=== PATIENT | male | born 1955 | race Caucasian/White ===

== ENCOUNTER → 2018-03-22 10:23 | Outpatient (CLI) | payer BC ==
[~2018-03-22 10:23] MED LIST: ASPIRIN EC81 M1 PO; MOBIC7.5 MG PO; OMNICEF300 MG PO; PROSCAR5 MG PO; UROXATRAL10 MG PO; [UNRECOGNIZED DRUG - OTHER] PO
== END | disposition home or self-care (01) ==
LOC: D.LABREF 10:23
DX: M17.12 Unilateral primary osteoarthritis, left knee (principal); Z11.8 Encounter for screening for other infectious and parasitic diseases

== ENCOUNTER 2018-03-30 09:35 | Inpatient (IN) | payer BC ==
[~2018-03-30] VITALS: Ht 172.7 cm; Wt 86.4 kg
[2018-03-30] MEDS ORDERED: OMNICEF300 MG PO (10:58)
[2018-03-30] MEDS ORDERED: [UNRECOGNIZED DRUG - OTHER] PO (11:00)
[2018-03-30] MEDS ORDERED: PROSCAR5 MG PO (11:00)
[2018-03-30] MEDS ORDERED: ASPIRIN EC81 M1 PO (11:01)
[2018-03-30] MEDS ORDERED: UROXATRAL10 MG PO (11:01)
[2018-03-30] MEDS ORDERED: MOBIC7.5 MG PO (11:02)
[2018-03-30 12:21] LABS: BASOPHILS 0.6 % (0-2); EOSINOPHILS 1.1 % (0-7); HEMATOCRIT 43.5 % (42.0-54.0); HEMOGLOBIN 15.1 g/dL (13.5-17.5); IMMATURE GRANULOCYTES 0.4 % (0-5); LYMPHOCYTES 37.3 % (15-50); MCH 31.7 pg (26.0-34.0); MCHC 34.7 g/dL (31.0-37.0); MCV 91.4 fL (80.0-100.0); MEAN PLATELET VOLUME 9.8 fL (7.4-10.4); MONOCYTES 8.2 % (2-11); NEUTROPHILS 52.4 % (40-80); PLATELET COUNT 218 10x3/uL (130-400); RBC 4.76 10x6/uL (4.20-6.10); RDW 13.1 % (11.5-14.5); WBC 8.4 10x3/uL (4.8-10.8)
[2018-03-30 12:28] LABS: ANION GAP 11.4 mmol/L (8-16); CALCIUM 8.6 mg/dL (8.5-10.1); CARBON DIOXIDE 26.5 mmol/L (21.0-32.0); CREATININE - SERUM 1.1 mg/dL (0.6-1.3); POTASSIUM - SERUM 3.9 mmol/L (3.5-5.1)
[2018-03-30 12:38] LABS: APTT 26.6 SECONDS (22.8-39.4); INR 1.02 (0.85-1.17); PROTIME 12.9 SECONDS (11.6-15.0)
[2018-03-30 13:34] LABS: APPEARANCE CLEAR (CLEAR); BILIRUBIN NEGATIVE (NEGATIVE); COLOR YELLOW (YELLOW); GLUCOSE NEGATIVE (NEGATIVE); KETONE NEGATIVE (NEGATIVE); NITRITE NEGATIVE (NEGATIVE); PROTEIN NEGATIVE (NEGATIVE); UROBILINOGEN NORMAL (NORMAL)
[2018-04-05 09:07] VITALS: BP 138/71; BMI 28.1
[2018-04-05 16:00] VITALS: BP 114/80
[2018-04-05 16:46] VITALS: BP 114/80
--- NOTE | 2018-04-05 16:49 | NUR ---
PT ARRIVED TO UNIT FROM RECOVERY ROOM IN STABLE CONDTION, OREINTED TO ROOM , CL IN REACH
[2018-04-05 18:08] VITALS: Ht 172.7 cm; Wt 86.4 kg
--- NOTE | 2018-04-05 18:46 | NUR ---
RECRUITMENT SPECIALIST CMOLPETE. PT LYING IN BED AAO X4 TO PERSON, PLACE,TIME AND SITUATION. AT BEDISDE. L TOTAL KNEE REPLACEMENT DONE TODAY- MARIO WRAP AND ALICIA HOSE IN PLACE. DENIES PAIN AT THIS TIME. CL IN REACH.
[2018-04-05 20:48] VITALS: BP 112/69
[2018-04-06 00:34] VITALS: BP 99/55
--- NOTE | 2018-04-06 02:30 | NUR ---
EYES CLOSED RESPIRATIONS WITH EASE AND UNLABORED. SR UP X2 CALL LIGHT WITHIN REACH.
[2018-04-06 04:46] VITALS: BP 105/58
[2018-04-06 06:48] LABS: BASOPHILS 0.1 % (0-2); EOSINOPHILS 0 % (0-7); HEMATOCRIT 37.2 % (42.0-54.0); HEMOGLOBIN 12.9 g/dL (13.5-17.5); IMMATURE GRANULOCYTES 0.3 % (0-5); LYMPHOCYTES 12.1 % (15-50); MCH 31.5 pg (26.0-34.0); MCHC 34.7 g/dL (31.0-37.0); MEAN PLATELET VOLUME 10.1 fL (7.4-10.4); MONOCYTES 7.2 % (2-11); NEUTROPHILS 80.3 % (40-80); PLATELET COUNT 201 10x3/uL (130-400); RBC 4.09 10x6/uL (4.20-6.10); RDW 12.9 % (11.5-14.5); WBC 11.6 10x3/uL (4.8-10.8)
[2018-04-06 07:01] LABS: ALBUMIN 2.8 g/dL (3.4-5.0); ALKALINE PHOSPHATASE 36 U/L (46-116); ALT (SGPT) 40 U/L (10-68); BILIRUBIN - TOTAL 0.31 mg/dL (0.2-1.3); CALC OSMOLALITY 279 mosm/kg (275-300); CALCIUM 7.7 mg/dL (8.5-10.1); CARBON DIOXIDE 22.9 mmol/L (21.0-32.0); CHLORIDE - SERUM 104 mmol/L (98-107); GLUCOSE 128 mg/dL (74-106); POTASSIUM - SERUM 4.4 mmol/L (3.5-5.1); PROTEIN - SERUM 5.6 g/dL (6.4-8.2); SODIUM 138 mmol/L (136-145); UREA NITROGEN 17 mg/dL (7-18); eGFR NON AFRICAN AMERICAN 81 mL/min (90-120)
[2018-04-06 09:13] VITALS: BP 107/60
[2018-04-06 15:16] VITALS: BP 120/57
--- NOTE | 2018-04-06 16:32 | OP ---
PATIENT NAME: HEIDI HUERTA MEDICAL RECORD: [id number] :59 LOCATION:D.MS [id number] ADMISSION DATE:04/05/18 SURGEON: RAIMUNDO DAVID DO DATE OF OPERATION: 04/05/2018 PROCEDURE PERFORMED: Left total knee arthroplasty. PREOPERATIVE DIAGNOSIS: Left medial osteoarthritis. POSTOPERATIVE DIAGNOSIS: Left medial osteoarthritis. INDICATIONS: Mr. Huerta is a 63-year-old male who has gone through several rounds of conservative management for his left knee. He has tried injections, home therapy and all manner of treatment to no avail. He is tired of it affecting his activities of daily living and want the total knee done. I informed him of the risks and benefits of the procedure including infection, bleeding, damage to nerve or vessels, blood clots, and even . He was okay with that and fracturing and signed the consent. SURGEON: Raimundo David DO DESCRIPTION OF THE PROCEDURE: The patient was given a block by anesthesia in the preoperative area, taken to the operative suite, given 2 grams Ancef and 80 mg gentamicin preoperatively. The left lower extremity was prepped and draped in sterile fashion. A timeout was performed. Everyone was in agreement of correct side, site, and patient, and procedure. Incision was then marked out on the anterior knee and then the knee was wrapped in Ioban. A #10 blade scalpel was then used to dissect down to the capsule itself. All bleeders were coagulated at that time with the Aquamantys as throughout the case. A fresh 10 blade was used to do a medial parapatellar approach to the capsule and then some of the fat pad was removed and the patella was everted and milled down to fit the prosthesis. Once that was done, the knee was flexed and the intramedullary canal was entered and the distal femur was cut. The tibia was then cut as well and the femur was then measured to be a 65. A 4-in-1 cutting block was put on and then 4-in-1 cut was made. The bone was removed and then a 65 trial was placed. After the tibia was cut, the menisci were removed and everything was coagulated in the posterior capsule and then medial and lateral geniculate bleeders were coagulated as well and then, the femur was cut. The poly did not, with the traded out, quite fit medially. The release was done medially and still thinks that the PCL was partially released off the femur in hopes that it open up the medial side and this did help. Then, the trial femur was removed and the tibia was recut to approximately 2 more mm taken off. After that was done, the trial was put back on the femur and the tibia was put into place. It fit very tightly but it fit with a 10 poly. It was ranged and then rotation was marked and the femur was drilled and the patella was drilled and the tibia was then prepared. It was sized to be a 75 cruciate and tibia that was drilled and punched and the whole knee was irrigated thoroughly. Then, cement was put into the tibia as well as on the implant. This was impacted in place. Excess cement was removed. The porous femur 65 left 4 cm was then put on and impacted into place and then 10 poly was put in between them. The knee was brought to extension of 34. A three-peg patella was cemented on and held into place while the cement dried. The knee was thoroughly irrigated at that point and then after it was irrigated, the 10 fit very well, but due to the partially released PCL bearing 10 E poly was placed. This was put in and fit very well, was very solid. No medial or lateral movement in extension with flexion or mid OPERATIVE REPORT [id number] HEIDI HUERTA flexion. The locking mechanism was put in and snapped into place. The knee was irrigated one more time and then Surgicel beads were placed in the gutters as well as tobramycin and vancomycin powder. The knee was then flexed up and the capsule was closed with #5 Ethibond in a few xvaerg-ey-bkjay stitches and then #1 pop-off Vicryl in between them. The knee on the capsule was then irrigated, more vancomycin and tobramycin powder was placed. The skin was closed with 2-0 Vicryl in inverted interrupted fashion. The zipped line was then placed on the knee. Adaptic, 4 x 4, ABD, Webril and an Bassam wrap was placed on the knee and ALICIA hose stocking was placed up to the knee and the patient was awakened and then taken to recovery in stable condition. Blood loss was approximately 200 mL. COMPLICATIONS: None. TRANSINT:[id number] Voice Confirmation ID: [id number] DOCUMENT ID: [id number] RAIMUNDO DAVID DO at 1632 CC: [id number] DICTATION DATE: 04/05/18 1558 ION EXCHANGE OPERATOR: 04/05/18 194 ADM IN [facility] [address] [id number]
--- NOTE | 2018-04-06 21:00 | NUR ---
PT SITTING UP IN BED, NO SIGNS OF DISTRESS. ALERT AND ORIENTED. AT BEDSIDE. PT STATES HE IS STILL FEELING BLOCK SOME BUT IT IS WEARING OFF. REMOVED CPM. PAIN 05/08. RIGHT HAND IV SL. SCD TO RIGHT LEG, PLEXI TO LEFT. NO NEEDS AT THIS TIME. CL IN REACH, WILL CONTINUE TO MONITOR
[2018-04-07 05:02] LABS: BASOPHILS 0.2 % (0-2); EOSINOPHILS 0.5 % (0-7); HEMATOCRIT 35.9 % (42.0-54.0); HEMOGLOBIN 12.3 g/dL (13.5-17.5); IMMATURE GRANULOCYTES 0.2 % (0-5); LYMPHOCYTES 27.1 % (15-50); MCH 31.2 pg (26.0-34.0); MCHC 34.3 g/dL (31.0-37.0); MCV 91.1 fL (80.0-100.0); MEAN PLATELET VOLUME 10.1 fL (7.4-10.4); PLATELET COUNT 176 10x3/uL (130-400); RBC 3.94 10x6/uL (4.20-6.10); RDW 13.3 % (11.5-14.5); WBC 9.5 10x3/uL (4.8-10.8)
[2018-04-07 05:22] LABS: ALBUMIN 2.7 g/dL (3.4-5.0); ANION GAP 11.8 mmol/L (8-16); BILIRUBIN - TOTAL 0.29 mg/dL (0.2-1.3); CALCIUM 7.9 mg/dL (8.5-10.1); CARBON DIOXIDE 26.8 mmol/L (21.0-32.0); CREATININE - SERUM 1.1 mg/dL (0.6-1.3); PROTEIN - SERUM 5.8 g/dL (6.4-8.2)
[2018-04-07 05:29] LABS: POTASSIUM - SERUM 3.6 mmol/L (3.5-5.1)
[2018-04-07 05:50] VITALS: BP 122/71
--- NOTE | 2018-04-07 07:55 | NUR ---
PT IS RESTING IN BED WITH EYES OPEN. RESPIRATIONS ARE EVEN AND UNLABORED. FAMILY IS AT BEDSIDE. PT IS ON CPM AT THIS TIME. PT REPORTS FEELING IN THE LOWER EXTREMITIES AND REPORTS PAIN 4/10 TO THE LEFT KNEE. SCD IS ON THE RIGHT LEG AND PLEXI IS ON THE LEFT FOOT. PT REPORTS THAT HE IS PASSING GAS AND STATES THAT HE FEELS LIKE HE MAY NEED TO HAVE A BM THIS AM. BED IS IN THE LOWEST POSITION. CALL LIGHT AND BEDSIDE TABLE ARE WITHIN REACH. WILL CONT TO MONITOR.
[2018-04-07 08:19] VITALS: BP 123/72
[2018-04-07 10:02] VITALS: BP 142/93
--- NOTE | 2018-04-07 10:49 | NUR ---
PT TRANSPORTED FROM ROOM TO OR VIA BED. NG TUBE CLAMPED. PT DID NOT RECEIVE ROBINOL PRE-OP MEDICATION DUE TO REFUSAL TO SWALLOW PILL.
--- NOTE | 2018-04-07 11:21 | MORECARE ---
CASE MANAGEMENT DISCHARGE SUMMARY PATIENT: HEIDI DOZIER H UNIT: [id number] ADM DATE: 04/05/18 AGE: 63 : 59 SEX: M ROOM/BED: D.2213 AUTHOR: PALMER RODRÍGUEZ PHYSICIAN: REFERRING PHYSICIAN: JESU DAVID DO DATE OF SERVICE: 04/07/18 Discharge Plan Patient Name: HEIDI DOZIER [facility] [facility] 1955 Planned Disposition: Home Anticipated Discharge Date: Discharge Date: Expected LOS: Initial Reviewer: [email or web address] Initial Review Date: 04/05/2018 Generated: 04/07/18 12:21 pm DCPIA - Discharge Planning Initial Assessment Updated by [email or web address]: Michelle Miranda on 04/07/18 11:20 am * Is the patient Alert and Oriented? Yes * How many steps to enter\exit or inside your home? * PCP VERSER * Pharmacy [facility] * Preadmission Environment Home with Family * ADLs Independent * Equipment Bedside Commode Rolling Walker * Other Equipment CPM ICE MACHINE * List name and contact numbers for known caregivers / representatives who currently or will assist patient after discharge: BRE [phone] () * Verbal permission to speak to the caregivers and representatives has been obtained from the patient. Yes * Community resources currently utilized None * Additional services required to return to the preadmission environment? Yes * Can the patient safely return to the preadmission environment? Yes * Has this patient been hospitalized within the prior 30 days at any hospital? No Patient Name: HEIDI DOZIER Page [id number] at 1121 All edits/amendments must be made on the electronic document DICTATION DATE: 04/07/18 1120 REGISTERED VETERINARY TECHNICIAN: ANNA 04/07/18 1120 RPT#: [id number] DC DATE: STATUS: ADM IN [facility] [address] [place] [address] END OF REPORT
[2018-04-07 11:30] VITALS: BP 118/68
--- NOTE | 2018-04-07 11:30 | MORECARE ---
CASE MANAGEMENT DISCHARGE SUMMARY PATIENT: HEIDI DOZIER UNIT: [id number] ADM DATE: 04/05/18 AGE: 63 : 59 SEX: M ROOM/BED: D.2213 AUTHOR: PALMER RODRÍGUEZ PHYSICIAN: REFERRING PHYSICIAN: JESU DAVID DO DATE OF SERVICE: 04/07/18 Discharge Plan Patient Name: HEIDI DOZIER Facility: [facility]:[place] : 1955 Planned Disposition: Home Anticipated Discharge Date: Discharge Date: Expected LOS: Initial Reviewer: [email or web address] Initial Review Date: 04/05/2018 Generated: 04/07/18 12:30 pm Comments DCP- Discharge Planning Updated by [email or web address]: Michelle Miranda on 04/07/18 10:[address] Patient Name: HEIDI DOZIER Admission Status: Elective Accout number: [id number] Admission Date: 04-05-2018 : 1955 Admission Diagnosis: Attending: JESU DAVID Current LOS: 2 Anticipated DC Date: Planned Disposition: Home Primary Insurance: [employer] [facility] Discharge Planning Comments: CM met with patient and to assess discharge planning needs. Patient stated that he lives is [place] and plans to return there at [place]. His , Milli will be the one to drive him home. He would like to do his OP PT at [facility] ) I called and set up his PT for 04/11/18 @ 9:45 am I spoke with Blanca and faxed the order. A copy of the order will also be given with DC packet. Patient has CPM, ice machine, walker, and BSC that was delivered to his home and set up by [facility]. CM will continue to follow and assist with DC planning needs. Particleboard Factory Worker: Michelle Miranda DCPIA - Discharge Planning Initial Assessment Updated by [email or web address]: Michelle Miranda on 04/07/18 11:20 am * Is the patient Alert and Oriented? Yes * How many steps to enter\exit or inside your home? * PCP VERSER * Pharmacy [facility] * Preadmission Environment Home with Family * ADLs Independent * Equipment Bedside Commode Rolling Walker * Other Equipment CPM ICE MACHINE * List name and contact numbers for known caregivers / representatives who currently or will assist patient after discharge: MILLI [phone] () * Verbal permission to speak to the caregivers and representatives has been obtained from the patient. Yes * Community resources currently utilized None * Additional services required to return to the preadmission environment? Yes * Can the patient safely return to the preadmission environment? Yes * Has this patient been hospitalized within the prior 30 days at any hospital? No Last DP export: 04/07/18 10:21 am Patient Name: HEIDI DOZIER Page [id number] at 1130 All edits/amendments must be made on the electronic document DICTATION DATE: 04/07/18 113 PROCESS EXPERT: ANNA 04/07/18 1130 RPT#: [id number] DC DATE: STATUS: ADM IN [facility] [address] [place] [address] END OF REPORT
[2018-04-07] MEDS ORDERED: ELIQUIS2.5 MG PO (13:35)
[2018-04-07] MEDS ORDERED: KEFLEX500 MG PO (13:36)
[2018-04-07] MEDS ORDERED: OXYCODONE HCL5 M1 PO (13:37)
[2018-04-07 14:32] VITALS: BP 138/80
--- NOTE | 2018-04-07 16:42 | NUR ---
DISCHARGE INSTRUCTIONS COVERED. ALL QUESTIONS ANSWERED. PT DENIES FURTHER QUESTIONS/CONCERNS AT THIS TIME. ALL DISCHARGE PAPER SIGNED. PIV REMOVED WITH CATHETER TIP INTACT. DRESSING APPLIED. PT DENIES FURTHER NEEDS.
--- NOTE | 2018-04-07 17:00 | NUR ---
PT TRANSPORTED FROM ROOM VIA WHEELCHAIR TO TRANSPORTATION HOME. PT DENIES FURTHER QUESTIONS/CONCERNS.
--- NOTE | 2018-04-11 11:32 | MORECARE ---
CASE MANAGEMENT DISCHARGE SUMMARY PATIENT: HEIDI DOZIER UNIT: [id number] ADM DATE: 04/05/18 AGE: 63 : 59 SEX: M ROOM/BED: D.2213 AUTHOR: MARCOSDOC PHYSICIAN: REFERRING PHYSICIAN: JESU DAVID DO DATE OF SERVICE: 04/11/18 Discharge Plan Patient Name: HEIDI DOZIER Facility: [facility]:[place] : 1955 Planned Disposition: Home Anticipated Discharge Date: Discharge Date: 04/07/2018 Expected LOS: 0 Initial Reviewer: [email or web address] Initial Review Date: 04/05/2018 Generated: 04/11/18 12:32 pm Comments DCP- Discharge Planning Updated by [email or web address]: Michelle Miranda on 04/07/18 10:[address] Patient Name: HEIDI DOZIER Admission Status: Elective Accout number: [id number] Admission Date: 04-05-2018 : 1955 Admission Diagnosis: Attending: JESU DAVID Current LOS: 2 Anticipated DC Date: Planned Disposition: Home Primary Insurance: [employer] [facility] Discharge Planning Comments: CM met with patient and to assess discharge planning needs. Patient stated that he lives is [place] and plans to return there at [place]. His , Milli will be the one to drive him home. He would like to do his OP PT at [facility] ( [phone]) I called and set up his PT for 04/11/18 @ 9:45 am I spoke with Blanca and faxed the order. A copy of the order will also be given with DC packet. Patient has CPM, ice machine, walker, and BSC that was delivered to his home and set up by Dr [facility]. CM will continue to follow and assist with DC planning needs. Upholsterer Inside: Michelle Miranda DCPIA - Discharge Planning Initial Assessment Updated by [id number]: Michelle Miranda on 04/07/18 11:20 am * Is the patient Alert and Oriented? Yes * How many steps to enter\exit or inside your home? * PCP VERSER * Pharmacy [facility] * Preadmission Environment Home with Family * ADLs Independent * Equipment Bedside Commode Rolling Walker * Other Equipment CPM ICE MACHINE * List name and contact numbers for known caregivers / representatives who currently or will assist patient after discharge: MILLI [phone] () * Verbal permission to speak to the caregivers and representatives has been obtained from the patient. Yes * Community resources currently utilized None * Additional services required to return to the preadmission environment? Yes * Can the patient safely return to the preadmission environment? Yes * Has this patient been hospitalized within the prior 30 days at any hospital? No Last DP export: 04/07/18 10:30 am Patient Name: HEIDI DOZIER Page 82790 at 1132 All edits/amendments must be made on the electronic document DICTATION DATE: 04/11/18 1131 JET PILOT: ANNA 04/11/18 1131 RPT#: [id number] DC DATE:04/07/18 STATUS: DIS IN [facility] [address] [place] [address] END OF REPORT
== END 2018-04-07 17:05 | disposition home or self-care (01) | DRG 470 ==
LOC: D.SDCHOLD 10:00 → D.MS 04-05 16:16
PROVIDERS: Family Medicine; ADMIT Orthopaedic Surgery
PROC: 0SRD0JZ Replacement of Left Knee Joint with Synthetic Substitute, Open Approach (ICD-10-PCS; principal; 2018-04-05 11:00)
DX: M17.12 Unilateral primary osteoarthritis, left knee (principal); K21.9 Gastro-esophageal reflux disease without esophagitis

== ENCOUNTER → 2018-06-30 09:52 | Outpatient (CLI) | payer BC ==
[2018-04-05 18:08] VITALS: BMI 28.9
[~2018-06-30 09:52] MED LIST changes: +BACTROBAN NASAL1 GM NASAL; +BAYER CHEWABLE81 MG PO; +ELIQUIS2.5 MG PO; +FLUTICASONE PRO16 GM NASAL; +HYDROCODON-ACE1 EAC7 PO; +KEFLEX500 MG PO; +OXYCODONE HCL5 M1 PO
[2018-06-30 10:28] LABS: BASOPHILS 0.4 % (0-2); EOSINOPHILS 1.8 % (0-7); HEMATOCRIT 41.3 % (42.0-54.0); HEMOGLOBIN 14.5 g/dL (13.5-17.5); LYMPHOCYTES 45.3 % (15-50); MCH 30.7 pg (26.0-34.0); MCHC 35.1 g/dL (31.0-37.0); MCV 87.5 fL (80.0-100.0); MEAN PLATELET VOLUME 9.8 fL (7.4-10.4); MONOCYTES 11.3 % (2-11); NEUTROPHILS 41.2 % (40-80); RBC 4.72 10x6/uL (4.20-6.10); RDW 12.6 % (11.5-14.5); WBC 4.9 10x3/uL (4.8-10.8)
[2018-06-30 10:39] LABS: PLATELET COUNT 218 10x3/uL (130-400)
[2018-06-30 13:11] LABS: ERYTHROCYTE SEDIMENTATION RATE 9 mm/hr (0-20)
[2018-06-30 15:43] LABS: NEUT - BF 42 %
[2018-06-30 15:44] LABS: MACROPHAGES BF 10 %
== END | disposition home or self-care (01) ==
LOC: D.LAB 09:52
PROVIDERS: ATTEND Orthopaedic Surgery
DX: M25.562 Pain in left knee (principal)

== ENCOUNTER 2018-06-30 11:32 | Inpatient (IN) | payer BC ==
[~2018-06-30] VITALS: Ht 172.7 cm; Wt 83.6 kg
[~2018-06-30 11:32] MED LIST changes: -BACTROBAN NASAL1 GM NASAL; -BAYER CHEWABLE81 MG PO; -FLUTICASONE PRO16 GM NASAL; -HYDROCODON-ACE1 EAC7 PO
[2018-07-04] MEDS ORDERED: FLUTICASONE PRO16 GM NASAL (13:34)
[2018-07-04] MEDS ORDERED: HYDROCODON-ACE1 EAC7 PO (13:35)
[2018-07-04] MEDS ORDERED: MOBIC7.5 MG PO (13:36)
[2018-07-04] MEDS ORDERED: BACTROBAN NASAL1 GM NASAL (13:36)
[2018-07-04] MEDS ORDERED: BAYER CHEWABLE81 MG PO (13:36)
[2018-07-04 14:14] LABS: BASOPHILS 0.8 % (0-2); EOSINOPHILS 2.6 % (0-7); HEMATOCRIT 40.7 % (42.0-54.0); IMMATURE GRANULOCYTES 0.2 % (0-5); LYMPHOCYTES 40.3 % (15-50); MCH 30.2 pg (26.0-34.0); MCHC 34.4 g/dL (31.0-37.0); MCV 87.7 fL (80.0-100.0); MEAN PLATELET VOLUME 9.5 fL (7.4-10.4); MONOCYTES 8.5 % (2-11); NEUTROPHILS 47.6 % (40-80); PLATELET COUNT 232 10x3/uL (130-400); RBC 4.64 10x6/uL (4.20-6.10); RDW 12.7 % (11.5-14.5)
[2018-07-04 14:35] LABS: APPEARANCE CLEAR (CLEAR); BILIRUBIN NEGATIVE (NEGATIVE); COLOR STRAW (YELLOW); GLUCOSE NEGATIVE (NEGATIVE); KETONE NEGATIVE (NEGATIVE); NITRITE NEGATIVE (NEGATIVE); PROTEIN NEGATIVE (NEGATIVE); UROBILINOGEN NORMAL (NORMAL)
[2018-07-04 14:42] LABS: INR 1.03 (0.85-1.17)
[2018-07-04 14:43] LABS: APTT 27.4 SECONDS (22.8-39.4)
[2018-07-04 14:46] LABS: ANION GAP 13.6 mmol/L (8-16); CALCIUM 8.7 mg/dL (8.5-10.1); CARBON DIOXIDE 25.3 mmol/L (21.0-32.0); CREATININE - SERUM 1.1 mg/dL (0.6-1.3); POTASSIUM - SERUM 3.9 mmol/L (3.5-5.1)
[2018-07-05 13:04] VITALS: BP 137/88; BMI 28.1
--- NOTE | 2018-07-05 18:45 | NUR ---
PLASMA BLADE SET 6/8 BOVIE PAD RIGHT THIGH [id number] EXP 12/27/19
[2018-07-05 20:52] VITALS: BP 119/72
--- NOTE | 2018-07-05 21:00 | NUR ---
RECEIVED TO FLOOR VIA BED, ACCOMPANIED BY HOSPITAL STAFF AND . A&O X 4. 2L O2 IN USE, VITAL SIGNS STABLE. REPORTS PAIN LEVEL OF, "2 OR 3," OUT OF TEN. REQUESTS A SPRITE, ICE PACK TO PUT ON DRESSING TO LEFT KNEE, AND URINAL. DENIES FURTHER NEEDS AT THIS TIME, WILL CONTINUE TO MONITOR.
[2018-07-05 22:39] VITALS: BP 119/72; Ht 172.7 cm; Wt 83.6 kg
[2018-07-06 00:57] VITALS: BP 93/51
[2018-07-06 05:54] VITALS: BP 115/54
[2018-07-06 06:07] LABS: HEMATOCRIT 37.5 % (42.0-54.0); HEMOGLOBIN 12.7 g/dL (13.5-17.5); MCHC 33.9 g/dL (31.0-37.0); MCV 88.4 fL (80.0-100.0); RBC 4.24 10x6/uL (4.20-6.10); RDW 12.9 % (11.5-14.5)
[2018-07-06 06:31] LABS: WBC 7.1 10x3/uL (4.8-10.8)
[2018-07-06 08:55] VITALS: BP 102/53
--- NOTE | 2018-07-06 09:32 | OP ---
PATIENT NAME: HEIDI HUERTA MEDICAL RECORD: [id number] :59 LOCATION:D.MS Hernandez2208 ADMISSION DATE:07/05/18 SURGEON: RAIMUNDO DAVID DO DATE OF OPERATION: 07/05/2018 PROCEDURE PERFORMED: Revision of the left total knee. PREOPERATIVE DIAGNOSIS: Loosening of the femoral component of his left total knee arthroplasty. POSTOPERATIVE DIAGNOSIS: Loosening of the femoral component of his left total knee arthroplasty. INDICATIONS: Mr. Huerta is a 63-year-old male who had a total knee approximately 3 months ago, did well postop and then in the last few weeks, started having more and more pain and swelling in his knee, presented to my office. X-rays were taken. There was a lucency seen in the distal femur on the prosthesis. On new Labs, his CRP was elevated at 1.4, but his white count and ESR were not elevated. We then aspirated his knee. The aspirate did not show any organisms and did not grow anything on the culture for 5 days. Once that was done ensuring that likely was not infected, I informed him we do a revision on the femur. The tibia looked okay. It did not appear loose on the x-rays, but we will have to check when we are in there, look for an explanation for why it happened. The patient was okay with that plan and did not have any symptoms of infection either and once we had that discussion, he was informed of the other risks of including increased risk for infection, bleeding, and damage to the nerves and vessels, he was okay with that and signed the consent. SURGEON: Raimundo David DO DESCRIPTION OF PROCEDURE: The patient was given a block by anesthesia in the preoperative area and taken to the operative suite, laid in the supine position. Left lower extremity was prepped and draped in sterile fashion. Time out was performed and everybody was in agreeance the correct side, site, patient, and procedure. Incision was then marked out over the previous incision and then Ioban was placed over that. After the timeout had been performed, the patient was given 1 gram of vancomycin and an incision was made down to the capsule. Capsule was then cleared off medially and then the medial parapatellar approach was used to go through the capsule following the previous incision. There was no purulence, but the joint fluid was noted in the joint. The poly was then removed and then an osteotome was used to go around the femur, it came right off, it was very loose, but with a little to no bone loss at all, it was a #65 femur. The tibia was then checked and noted it was not loose at all. It was very firm. We then reamed up to a #13 stem and trialed the #65 with a #12 stem. This fit very well, then did the cruciate cut for the posterior stabilized knee through the guide. This bone was removed. Cultures were taken, beginning and sent to the lab that a Gram stain showed a few white blood cells and no organisms. The trial was then placed and then a #10 poly was put in between and ranged well and fit very well. I decided to go with that #65. The femur was then prepped and irrigated well and the implant was assembled on the back table. The cement was then mixed and then placed on the femur and then up to the stem and it was then put on the implant and the femur itself. This was then impacted into place and excess cement was removed. This was repeated to ensure a good fixation down all OPERATIVE REPORT [id number] HEIDI HUERTA the way. Once the excess cement was removed, the #10 poly was put in and the knee was brought to extension as cement hardened. Once the cement hardened, Bactisure was used to irrigate the knee and then 1.5 liters of normal saline was used after that to irrigate the knee. The trial poly was removed and then the posterior stabilized #10 poly was then put into place and locked in with a locking mechanism. This was ranged, fit very well, had good stability and Surgicel powder and vancomycin and tobramycin powder was placed in the knee and then, the capsule was closed with #2 Ethibond in a [id number]-[id number]-lawcw fashion and then the capsule was irrigated and the skin was closed with 2-0 Vicryl in an inverted interrupted fashion, a ZipLine was placed on the knee. Adaptic, 4 x 4s, ABD, Webril, Bassam wrap were then placed on the knee. A ALICIA hose stocking up to knee. The patient was awakened and taken to the recovery in stable condition. Blood loss was approximately 200 mL. COMPLICATIONS: None. TRANSINT:[id number] Voice Confirmation ID: [id number] DOCUMENT ID: [id number] RAIMUNDO DAVID DO at 0932 CC: [id number] DICTATION DATE: 07/05/181913 PRECINCT CAPTAIN: 07/05/18 8008 ADM IN [facility] [address] [id number]
--- NOTE | 2018-07-06 10:57 | NUR ---
PATIENT STATES THAT HE CAN STILL NO FEEL HIS TOES OR FOOT. OR WIGGLE THEM. CAP REFILL IS WNL. PULSE IS PALPABLE. WCTM.
[2018-07-06 13:36] VITALS: BP 124/52
--- NOTE | 2018-07-06 14:42 | NUR ---
PATIENT CAN WIGGLE TOES NOW. RECEIVED ICE WATER. AND HIM CURRENTLY RESTING. NO COMPLAINTS AT THIS TIME. CL/ PHONE IN REACH. TM
[2018-07-06 16:35] VITALS: BP 123/54
--- NOTE | 2018-07-06 19:25 | NUR ---
ALERT AND ORIENTED. CPM MACHINE ON. STATES PAIN IS 3 AND REQUESTS PAIN MEDICINE BUT ONLY ONE BECAUSE HE DOES NOT LIKE FEELING "LOOPY". IV TO THE RIGHT HAND WITH 1/2 NS INFUSING @ 50. REPORTS NO BM TODAY. SLIGHT EXPIRATORY WHEEZES BILATERALLY. SCD'S, ALICIA HOSE TO THE LEFT LEG. 2 L NC PRN NEEDED. VERBALIZES UNDERSTANDING OF FALL PRECAUTIONS. AT BEDSIDE. CALL LIGHT IN REACH.
[2018-07-06 20:30] VITALS: BP 129/65
[2018-07-07 00:20] VITALS: BP 133/73
--- NOTE | 2018-07-07 03:51 | NUR ---
I have reviewed this patient and I concur with the Shift Assessment completed by the Licensed Practical Nurse today this shift.
[2018-07-07 05:05] VITALS: BP 124/74
--- NOTE | 2018-07-07 05:15 | NUR ---
REFUSES CPM UNTIL "629"
[2018-07-07 05:19] LABS: BASOPHILS 0.2 % (0-2); EOSINOPHILS 0.2 % (0-7); HEMATOCRIT 37.2 % (42.0-54.0); HEMOGLOBIN 12.8 g/dL (13.5-17.5); IMMATURE GRANULOCYTES 0.2 % (0-5); LYMPHOCYTES 26.2 % (15-50); MCH 30.4 pg (26.0-34.0); MCHC 34.4 g/dL (31.0-37.0); MCV 88.4 fL (80.0-100.0); MEAN PLATELET VOLUME 9.6 fL (7.4-10.4); MONOCYTES 8.1 % (2-11); NEUTROPHILS 65.1 % (40-80); RBC 4.21 10x6/uL (4.20-6.10)
[2018-07-07 05:20] LABS: PLATELET COUNT 179 10x3/uL (130-400); WBC 9.6 10x3/uL (4.8-10.8)
[2018-07-07 05:35] LABS: CALC OSMOLALITY 277 mosm/kg (275-300); CALCIUM 8.2 mg/dL (8.5-10.1); CARBON DIOXIDE 24.2 mmol/L (21.0-32.0); CHLORIDE - SERUM 106 mmol/L (98-107); POTASSIUM - SERUM 3.9 mmol/L (3.5-5.1); SODIUM 139 mmol/L (136-145); UREA NITROGEN 13 mg/dL (7-18); eGFR NON AFRICAN AMERICAN 81 mL/min (90-120)
[2018-07-07 05:41] LABS: GLUCOSE 99 mg/dL (74-106)
[2018-07-07 09:12] VITALS: BP 141/76
--- NOTE | 2018-07-07 11:56 | NUR ---
PATIENT AND ATTEMPTING TO TAKE A NAP. NO NEEDS AT THIS TIME. WCTM
--- NOTE | 2018-07-07 16:09 | MORECARE ---
CASE MANAGEMENT DISCHARGE SUMMARY PATIENT: HEIDI DOZIER H UNIT: [id number] ADM DATE: 07/05/18 AGE: 63 : 59 SEX: M ROOM/BED: D.2208 AUTHOR: PALMER RODRÍGUEZ PHYSICIAN: REFERRING PHYSICIAN: JESU DAVID DO DATE OF SERVICE: 07/07/18 Discharge Plan Patient Name: HEIDI DOZIER [facility] [facility] 1955 Planned Disposition: Home Anticipated Discharge Date: Discharge Date: Expected LOS: Initial Reviewer: [email or web address] Initial Review Date: 07/05/2018 Generated: 07/07/18 5:08 pm DCPIA - Discharge Planning Initial Assessment Updated by [email or web address]: Michelle Miranda on 07/07/18 4:06 pm * Is the patient Alert and Oriented? Yes * How many steps to enter\exit or inside your home? * PCP Verser * Pharmacy [facility] * Preadmission Environment Home with Family * ADLs Independent * Equipment Bedside Commode Rolling Walker Shower Chair * Other Equipment CPM - WILL BE DELIVERED TO HOME * List name and contact numbers for known caregivers / representatives who currently or will assist patient after discharge: BRE DOZIER * Verbal permission to speak to the caregivers and representatives has been obtained from the patient. N/A * Community resources currently utilized None * Additional services required to return to the preadmission environment? No * Can the patient safely return to the preadmission environment? Yes * Has this patient been hospitalized within the prior 30 days at any hospital? No Patient Name: HEIDI DOZIER Page 16537 at 1609 All edits/amendments must be made on the electronic document DICTATION DATE: 07/07/181607 SERVICE ATTENDANT CAFETERIA: ANNA 07/07/18 160 RPT#: [id number] DC DATE: STATUS: ADM IN [facility] [address] [place] [address] END OF REPORT
--- NOTE | 2018-07-07 16:17 | MORECARE ---
CASE MANAGEMENT DISCHARGE SUMMARY PATIENT: HEIDI DOZIER UNIT: [id number] ADM DATE: 07/05/18 AGE: 63 : 59 SEX: M ROOM/BED: D.2207 AUTHOR: PALMER RODRÍGUEZ PHYSICIAN: REFERRING PHYSICIAN: JESU DAVID DO DATE OF SERVICE: 07/07/18 Discharge Plan Patient Name: HEIDI DOZIER Facility: [facility]:[place] : 1955 Planned Disposition: Home Anticipated Discharge Date: Discharge Date: Expected LOS: Initial Reviewer: [email or web address] Initial Review Date: 07/05/2018 Generated: 07/07/18 5:17 pm Comments DCP- Discharge Planning Updated by [email or web address]: Michelle Miranda on 07/07/18 3:[address] Patient Name: HEIDI DOZIER Admission Status: Elective Accout number: [id number] Admission Date: 07-05-2018 : 1955 Admission Diagnosis: Attending: JESU DAVID Current LOS: 2 Anticipated DC Date: Planned Disposition: Home Primary Insurance: [employer] [facility] Discharge Planning Comments: CM met with patient to complete initial dc planning assessment. CM educated patient on the CM role and verbal consent given by patient to complete assessment. Patient lives at home with his where he is independent with her care at home. At discharge patient plans to return home and feels this is a safe discharge. His will be his oil transport driver home. CM discussed availability of home health, rehab services, and medical equipment. Patient has a walker, BSC, shower chair. He stated that the CPM will be delivered to his home after discharge. This was set up by Dr Emmanuel office. Patient will be doing his OP PT at [facility], I have called and spoke with Blanca his appointment is made for WednesdayJuly 11 at 9:45 am. Patient denied known discharge needs at this time. CM will continue to follow and will assist as needed with dc plans/needs. Cast Iron Drain Pipe Layer: Michelle Miranda DCPIA - Discharge Planning Initial Assessment Updated by [email or web address]: Michelle Miranda on 07/07/18 4:06 pm * Is the patient Alert and Oriented? Yes * How many steps to enter\exit or inside your home? * PCP Verser * Pharmacy [facility] * Preadmission Environment Home with Family * ADLs Independent * Equipment Bedside Commode Rolling Walker Shower Chair * Other Equipment CPM - WILL BE DELIVERED TO HOME * List name and contact numbers for known caregivers / representatives who currently or will assist patient after discharge: BRE DOZIER * Verbal permission to speak to the caregivers and representatives has been obtained from the patient. N/A * Community resources currently utilized None * Additional services required to return to the preadmission environment? No * Can the patient safely return to the preadmission environment? Yes * Has this patient been hospitalized within the prior 30 days at any hospital? No Last DP export: 07/07/18 3:09 pm Patient Name: HEIDI DOZIER Page 19093 at 1617 All edits/amendments must be made on the electronic document DICTATION DATE: 07/07/181616 APPAREL EMBROIDERY DIGITIZER: ANNA 07/07/181616 RPT#: [id number] DC DATE: STATUS: ADM IN [facility] [address] [place] [address] END OF REPORT
[2018-07-07 16:45] VITALS: BP 132/75
--- NOTE | 2018-07-07 19:30 | NUR ---
REC'D IN BED AWAKE AND ALERT. RESP EVEN AND UNLABORED WITH NO DISTRESS NOTED. NO C/O NOTED OR VOICED. ASSESSMENT COMPLETED. C/L IN REACH AT BEDSIDE.
[2018-07-07 20:03] VITALS: BP 131/75
--- NOTE | 2018-07-07 23:02 | NUR ---
C/O LEFT KNEE PAIN WAS MEDICATED WITH OXY 10 MG AND VISTARIL 50MG PER ORDERS. C/L IN REACH AT BEDSIDE.
--- NOTE | 2018-07-08 00:28 | NUR ---
I have reviewed this patient and I concur with the Shift Assessment completed by the Licensed Practical Nurse today this shift.
[2018-07-08 04:28] LABS: BASOPHILS 0.3 % (0-2); EOSINOPHILS 2.7 % (0-7); HEMATOCRIT 38.3 % (42.0-54.0); HEMOGLOBIN 13.2 g/dL (13.5-17.5); IMMATURE GRANULOCYTES 0.1 % (0-5); LYMPHOCYTES 33.5 % (15-50); MCH 30.6 pg (26.0-34.0); MCHC 34.5 g/dL (31.0-37.0); MCV 88.7 fL (80.0-100.0); MEAN PLATELET VOLUME 9.8 fL (7.4-10.4); MONOCYTES 10.1 % (2-11); NEUTROPHILS 53.3 % (40-80); PLATELET COUNT 196 10x3/uL (130-400); RBC 4.32 10x6/uL (4.20-6.10); RDW 12.8 % (11.5-14.5); WBC 7.3 10x3/uL (4.8-10.8)
[2018-07-08 04:49] LABS: CALC OSMOLALITY 276 mosm/kg (275-300); CALCIUM 8.7 mg/dL (8.5-10.1); CARBON DIOXIDE 28.5 mmol/L (21.0-32.0); CHLORIDE - SERUM 104 mmol/L (98-107); GLUCOSE 100 mg/dL (74-106); POTASSIUM - SERUM 3.8 mmol/L (3.5-5.1); SODIUM 139 mmol/L (136-145); UREA NITROGEN 11 mg/dL (7-18); eGFR NON AFRICAN AMERICAN 81 mL/min (90-120)
[2018-07-08 05:19] VITALS: BP 126/70
[2018-07-08 08:25] VITALS: BP 128/87
[2018-07-08] MEDS ORDERED: ELIQUIS2.5 MG PO (11:50)
[2018-07-08] MEDS ORDERED: OXYCODONE HCL5 M1 PO (11:50)
[2018-07-08] MEDS ORDERED: VISTARIL50 MG PO (11:51)
[2018-07-08] MEDS ORDERED: KEFLEX500 MG PO (11:51)
[2018-07-08 12:45] VITALS: BP 132/79
--- NOTE | 2018-07-08 12:51 | MORECARE ---
CASE MANAGEMENT DISCHARGE SUMMARY PATIENT: HEIDI DOZIER UNIT: [id number] ADM DATE: 07/05/18 AGE: 63 : 59 SEX: M ROOM/BED: D.2208 AUTHOR: PALMER RODRÍGUEZ PHYSICIAN: REFERRING PHYSICIAN: JESU DAVID DO DATE OF SERVICE: 07/08/18 Discharge Plan Patient Name: HEIDI DOZIER Facility: [facility]:[place] : 1955 Planned Disposition: Home Anticipated Discharge Date: Discharge Date: Expected LOS: Initial Reviewer: [email or web address] Initial Review Date: 07/05/2018 Generated: 07/08/18 1:51 pm Comments DCP- Discharge Planning Updated by [email or web address]: Michelle Miranda on 07/08/18 11:[address] Patient Name: HEIDI DOZIER Encounter No: [id number] : 1955 Primary Insurance: [employer] PPO Anticipated DC Date: Planned Disposition: Home External Planned Provider: : DCP follow-up note: Patient and family in agreement with discharge plan. No changes to plan. Case management will follow and assist as needed. Michelle Miranda DCP- Discharge Planning Updated by [email or web address]: Michelle Miranda on 07/07/18 3:[address] Patient Name: HEIDI DOZIER Admission Status: Elective Accout number: [id number] Admission Date: 07-05-2018 : 1955 Admission Diagnosis: Attending: JESU DAVID Current LOS: 2 Anticipated DC Date: Planned Disposition: Home Primary Insurance: [employer] [place] PPO Discharge Planning Comments: CM met with patient to complete initial dc planning assessment. CM educated patient on the CM role and verbal consent given by patient to complete assessment. Patient lives at home with his where he is independent with her care at home. At discharge patient plans to return home and feels this is a safe discharge. His will be his auto driver home. CM discussed availability of home health, rehab services, and medical equipment. Patient has a walker, BSC, shower chair. He stated that the CPM will be delivered to his home after discharge. This was set up by Dr Emmanuel office. Patient will be doing his OP PT at [facility], I have called and spoke with Blanca his appointment is made for WednesdayJuly 11 at 9:45 am. Patient denied known discharge needs at this time. CM will continue to follow and will assist as needed with dc plans/needs. Supervisor Meter Repair Shop: Michelle Miranda DCPIA - Discharge Planning Initial Assessment Updated by [email or web address]: Michelle Miranda on 07/07/18 4:06 pm * Is the patient Alert and Oriented? Yes * How many steps to enter\exit or inside your home? * PCP Verser * [facility] * Preadmission Environment Home with Family * ADLs Independent * Equipment Bedside Commode Rolling Walker Shower Chair * Other Equipment CPM - WILL BE DELIVERED TO HOME * List name and contact numbers for known caregivers / representatives who currently or will assist patient after discharge: BRE DOZIER * Verbal permission to speak to the caregivers and representatives has been obtained from the patient. N/A * Community resources currently utilized None * Additional services required to return to the preadmission environment? No * Can the patient safely return to the preadmission environment? Yes * Has this patient been hospitalized within the prior 30 days at any hospital? No Last DP export: 07/07/18 3:17 pm Patient Name: HEIDI DOZIER Page 22271 at 1251 All edits/amendments must be made on the electronic document DICTATION DATE: 07/08/18 125 SAMPLE WEAVER: ANNA 07/08/18 1250 RPT#: [id number] DC DATE: STATUS: ADM IN [facility] [address] [place] [address] END OF REPORT
--- NOTE | 2018-07-08 13:23 | NUR ---
DRESSING CHANGED. ORGINAL DRESSING HAD MODERATE BLOOD ON THE DRESSING. TOLERATED WELL. WAITING ON DISCHARGE PAPER WORK
--- NOTE | 2018-07-08 13:31 | NUR ---
IV THERAPY DISCONTINUED. TIP INTACT
--- NOTE | 2018-07-08 14:26 | NUR ---
DISCHARGE INSTRUCTIONS GIVEN. VERBALIZED UNDERSTANDING. WENT DOWN VIA WHEELCHAIR
--- NOTE | 2018-07-11 11:04 | MORECARE ---
CASE MANAGEMENT DISCHARGE SUMMARY PATIENT: HEIDI DOZIER UNIT: [id number] ADM DATE: 07/05/18 AGE: 63 : 59 SEX: M ROOM/BED: D.2206 AUTHOR: PALMER RODRÍGUEZ PHYSICIAN: REFERRING PHYSICIAN: JESU DAVID DO DATE OF SERVICE: 07/11/18 Discharge Plan Patient Name: HEIDI DOZIER Facility: [facility]:[place] : 1955 Planned Disposition: Home Anticipated Discharge Date: Discharge Date: 07/08/2018 Expected LOS: 0 Initial Reviewer: [email or web address] Initial Review Date: 07/05/2018 Generated: 07/11/18 12:04 pm Comments DCP- Discharge Planning Updated by [email or web address]: Michelle Miranda on 07/08/18 11:[address] Patient Name: HEIDI DOZIER Encounter No: [id number] : 1955 Primary Insurance: [employer] PPO Anticipated DC Date: Planned Disposition: Home External Planned Provider: : DCP follow-up note: Patient and family in agreement with discharge plan. No changes to plan. Case management will follow and assist as needed. Michelle Miranda DCP- Discharge Planning Updated by [email or web address]: Michelle Miranda on 07/07/18 3:[address] Patient Name: HEIDI DOZIER Admission Status: Elective Accout number: [id number] Admission Date: 07-05-2018 : 1955 Admission Diagnosis: Attending: JESU DAVID Current LOS: 2 Anticipated DC Date: Planned Disposition: Home Primary Insurance: [facility] Discharge Planning Comments: CM met with patient to complete initial dc planning assessment. CM educated patient on the CM role and verbal consent given by patient to complete assessment. Patient lives at home with his where he is independent with her care at home. At discharge patient plans to return home and feels this is a safe discharge. His will be his local intermodal truck driver home. CM discussed availability of home health, rehab services, and medical equipment. Patient has a walker, BSC, shower chair. He stated that the CPM will be delivered to his home after discharge. This was set up by Dr Emmanuel office. Patient will be doing his OP PT at [facility], I have called and spoke with Blanca his appointment is made for WednesdayJuly 11 at 9:45 am. Patient denied known discharge needs at this time. CM will continue to follow and will assist as needed with dc plans/needs. Pattern Vault Clerk: Michelle Miranda DCPIA - Discharge Planning Initial Assessment Updated by [email or web address]: Michelle Miranda on 07/07/18 4:06 pm * Is the patient Alert and Oriented? Yes * How many steps to enter\exit or inside your home? * PCP Verser * [facility] * Preadmission Environment Home with Family * ADLs Independent * Equipment Bedside Commode Rolling Walker Shower Chair * Other Equipment CPM - WILL BE DELIVERED TO HOME * List name and contact numbers for known caregivers / representatives who currently or will assist patient after discharge: BRE DOZIER * Verbal permission to speak to the caregivers and representatives has been obtained from the patient. N/A * Community resources currently utilized None * Additional services required to return to the preadmission environment? No * Can the patient safely return to the preadmission environment? Yes * Has this patient been hospitalized within the prior 30 days at any hospital? No Last DP export: 07/08/18 11:51 a Patient Name: HEIDI DOZIER Page 30069 at 1104 All edits/amendments must be made on the electronic document DICTATION DATE: 07/11/181103 INTEGRATION ARCHITECT: ANNA 07/11/18 1104 RPT#: [id number] DC DATE:07/08/18 STATUS: DIS IN [facility] [address] [place] [address] END OF REPORT
== END 2018-07-08 14:27 | disposition home or self-care (01) | DRG 467 ==
LOC: D.SDCHOLD 07-05 14:00 → D.MS 07-05 19:30
PROVIDERS: Internal Medicine Nephrology; ADMIT Orthopaedic Surgery; ATTEND Orthopaedic Surgery
PROC: 0SRW0JZ Replacement of Left Knee Joint, Tibial Surface with Synthetic Substitute, Open Approach (ICD-10-PCS; 2018-07-05)
PROC: 0SPW0JZ Removal of Synthetic Substitute from Left Knee Joint, Tibial Surface, Open Approach (ICD-10-PCS; principal; 2018-07-05 14:30)
DX: T84.033A Mechanical loosening of internal left knee prosthetic joint, initial encounter (principal); D62 Acute posthemorrhagic anemia; Y83.8 Other surgical procedures as the cause of abnormal reaction of the patient, or of later complication, without mention of misadventure at the time of the procedure; K21.9 Gastro-esophageal reflux disease without esophagitis; Z87.891 Personal history of nicotine dependence

== ENCOUNTER 2018-08-27 11:39 | Inpatient (IN) | payer BC ==
[~2018-08-27] VITALS: Ht 172.7 cm; Wt 84.1 kg
[~2018-08-27 11:39] MED LIST changes: +BACTROBAN NASAL1 GM NASAL; +BAYER CHEWABLE81 MG PO; +FLUTICASONE PRO16 GM NASAL; +HYDROCODON-ACE1 EAC7 PO; +VISTARIL50 MG PO
[2018-08-27 12:08] LABS: BASOPHILS 0.2 % (0-2); EOSINOPHILS 0.8 % (0-7); HEMATOCRIT 39.9 % (42.0-54.0); HEMOGLOBIN 13.9 g/dL (13.5-17.5); IMMATURE GRANULOCYTES 0.2 % (0-5); LYMPHOCYTES 17.7 % (15-50); MCH 30.5 pg (26.0-34.0); MCHC 34.8 g/dL (31.0-37.0); MCV 87.7 fL (80.0-100.0); MEAN PLATELET VOLUME 9.8 fL (7.4-10.4); NEUTROPHILS 71.1 % (40-80); PLATELET COUNT 186 10x3/uL (130-400); RBC 4.55 10x6/uL (4.20-6.10); RDW 13.4 % (11.5-14.5); WBC 12.8 10x3/uL (4.8-10.8)
[2018-08-27 12:43] LABS: ALBUMIN 3.4 g/dL (3.4-5.0); ANION GAP 13.7 mmol/L (8-16); BILIRUBIN - TOTAL 0.62 mg/dL (0.2-1.3); C-REACTIVE PROTEIN 14.2 mg/dL (0.0-0.9); CARBON DIOXIDE 24.3 mmol/L (21.0-32.0); CREATININE - SERUM 1.1 mg/dL (0.6-1.3); PROTEIN - SERUM 7.1 g/dL (6.4-8.2)
[2018-08-27 13:16] LABS: ERYTHROCYTE SEDIMENTATION RATE 18 mm/hr (0-20)
--- NOTE | 2018-08-27 14:13 | NUR ---
VANCOMYCIN DRIP CONTINUED ON ADMISSION.
[2018-08-27 14:28] LABS: MACROPHAGES BF 2 %; NEUT - BF 74 %
[2018-08-27 15:17] VITALS: BP 113/64; Ht 172.7 cm; Wt 84.1 kg
--- NOTE | 2018-08-27 18:20 | NUR ---
PT SITTING UP IN BED. NO S/S OF ACUTE DISTRESS. "TRYING TO FIGURE OUT WHICH SURGERY HE IS GOING TO HAVE." CL IN PLACE.
--- NOTE | 2018-08-27 18:51 | NUR ---
PT RESTING IN BED. AT BEDSIDE. NO S/S OF ACUTE DISTRESS. CL IN PLACE.
[2018-08-27 19:40] VITALS: BP 212/94
[2018-08-27 20:40] VITALS: BP 133/62
--- NOTE | 2018-08-27 21:51 | NUR ---
PT ALERT & ORIENTED. C/O LEFT KNEE PAIN 08/08. GAVE OXY IR 5 MG PO. PT REQUESTED SOMETHING TO HELP HIM RELAX OR SLEEP. GAVE VALIUM 5 MG PER TELEPHONE ORDER. COMPLETE ASSESSMENT PER FLOW-SHEET. NO OTHER NEEDS. WILL CONTINUE TO MONITOR.
[2018-08-28 00:56] VITALS: BP 109/66
[2018-08-28 05:44] VITALS: BP 123/67
[2018-08-28 06:48] LABS: BASOPHILS 0.1 % (0-2); EOSINOPHILS 1.8 % (0-7); HEMATOCRIT 36.9 % (42.0-54.0); HEMOGLOBIN 12.9 g/dL (13.5-17.5); IMMATURE GRANULOCYTES 0.2 % (0-5); LYMPHOCYTES 21.2 % (15-50); MCH 30.4 pg (26.0-34.0); MEAN PLATELET VOLUME 9.9 fL (7.4-10.4); MONOCYTES 9.8 % (2-11); NEUTROPHILS 66.9 % (40-80); PLATELET COUNT 196 10x3/uL (130-400); RBC 4.24 10x6/uL (4.20-6.10); RDW 13.3 % (11.5-14.5)
[2018-08-28 06:57] LABS: WBC 9.3 10x3/uL (4.8-10.8)
[2018-08-28 07:22] LABS: ALBUMIN 3.1 g/dL (3.4-5.0); ALKALINE PHOSPHATASE 45 U/L (46-116); ALT (SGPT) 33 U/L (10-68); BILIRUBIN - TOTAL 0.56 mg/dL (0.2-1.3); CALC OSMOLALITY 274 mosm/kg (275-300); CALCIUM 8.6 mg/dL (8.5-10.1); CARBON DIOXIDE 23.4 mmol/L (21.0-32.0); CHLORIDE - SERUM 104 mmol/L (98-107); GLUCOSE 100 mg/dL (74-106); POTASSIUM - SERUM 3.9 mmol/L (3.5-5.1); PROTEIN - SERUM 6.7 g/dL (6.4-8.2); SODIUM 138 mmol/L (136-145); eGFR NON AFRICAN AMERICAN 81 mL/min (90-120)
[2018-08-28 07:23] LABS: APTT 29.9 SECONDS (22.8-39.4); INR 1.16 (0.85-1.17); PROTIME 14.2 SECONDS (11.6-15.0)
[2018-08-28 07:27] LABS: UREA NITROGEN 11 mg/dL (7-18)
--- NOTE | 2018-08-28 09:17 | NUR ---
PT RESTING IN BED. NO SIGNS OF DISTRESS. IV TO LEFT AC PATNET NO REDNESS OR TENDERNESS. HAS REDNESS TO LEFT KNEE. DENIES ANY FUTHER NEED AT THIS TIME. CALL LIGHT IN REACH. BED LOW POSITION. FAMILY AT BEDSIDE.
[2018-08-28 10:25] VITALS: BP 122/65
--- NOTE | 2018-08-28 19:10 | NUR ---
I have reviewed this patient and I concur with the Shift Assessment completed by the Licensed Practical Nurse today this shift.
[2018-08-28 21:22] VITALS: BP 125/71
--- NOTE | 2018-08-28 21:33 | NUR ---
PT ALERT & ORIENTED. PT C/O OF LEFT KNEE PAIN 08/08. GAVE OXY IR 5 MG PO. SCD ON. COMPLETE ASSESSMENT PER FLOW-SHEET. NO OTHER NEEDS. WILL CONTINUE TO MONITOR.
[2018-08-29 04:56] VITALS: BP 152/76
[2018-08-29 05:12] LABS: BASOPHILS 0.3 % (0-2); EOSINOPHILS 2.5 % (0-7); HEMATOCRIT 36.9 % (42.0-54.0); HEMOGLOBIN 12.5 g/dL (13.5-17.5); LYMPHOCYTES 24.7 % (15-50); MCH 29.9 pg (26.0-34.0); MCHC 33.9 g/dL (31.0-37.0); MCV 88.3 fL (80.0-100.0); MEAN PLATELET VOLUME 9.6 fL (7.4-10.4); MONOCYTES 11.5 % (2-11); PLATELET COUNT 192 10x3/uL (130-400); RBC 4.18 10x6/uL (4.20-6.10); RDW 13.3 % (11.5-14.5)
[2018-08-29 05:39] LABS: WBC 6.1 10x3/uL (4.8-10.8)
[2018-08-29 05:42] LABS: ALBUMIN 2.8 g/dL (3.4-5.0); ANION GAP 10.5 mmol/L (8-16); BILIRUBIN - TOTAL 0.7 mg/dL (0.2-1.3); CALCIUM 9.1 mg/dL (8.5-10.1); CARBON DIOXIDE 28.4 mmol/L (21.0-32.0); CREATININE - SERUM 1.2 mg/dL (0.6-1.3); POTASSIUM - SERUM 3.9 mmol/L (3.5-5.1); PROTEIN - SERUM 6.5 g/dL (6.4-8.2)
[2018-08-29 10:15] VITALS: BP 132/78
--- NOTE | 2018-08-29 11:18 | NUR ---
MORNING ASSESSMENT COMPLETE. SEE ASSESSMENT FLOWSHEET FOR FURTHER DETAILS. PT LYING IN BED AAO X4 TO PERSON, PLACE, TIME, AND SITUATION. DENIES NEEDS AT THIS TIME. GIVEN REPORT TO GEORGE WRIGHT
[2018-08-29 12:28] VITALS: BP 132/84
[2018-08-29 17:30] VITALS: BP 142/82
--- NOTE | 2018-08-29 20:10 | NUR ---
PT RESTING IN BED. ALERT AND ORIENTED. NO SINGS OF DISTRESS. BREATHING EVEN AND UNLABORED. PT STATES NO PROBLEMS AT THIS TIME. WILL CONTINUE PLAN OF CARE. CALL LIGHT IN REACH.
[2018-08-29 20:31] VITALS: BP 149/81
[2018-08-30 01:08] LABS: APPEARANCE CLEAR (CLEAR); BILIRUBIN NEGATIVE (NEGATIVE); COLOR YELLOW (YELLOW); GLUCOSE NEGATIVE (NEGATIVE); KETONE NEGATIVE (NEGATIVE); NITRITE NEGATIVE (NEGATIVE); PROTEIN NEGATIVE (NEGATIVE); UROBILINOGEN NORMAL (NORMAL)
[2018-08-30 01:17] VITALS: BP 139/76
[2018-08-30 05:20] VITALS: BP 132/81
[2018-08-30 06:30] LABS: BASOPHILS 0.3 % (0-2); EOSINOPHILS 4.2 % (0-7); HEMATOCRIT 36.7 % (42.0-54.0); HEMOGLOBIN 12.6 g/dL (13.5-17.5); IMMATURE GRANULOCYTES 0.2 % (0-5); LYMPHOCYTES 30.2 % (15-50); MCH 30.1 pg (26.0-34.0); MCHC 34.3 g/dL (31.0-37.0); MCV 87.6 fL (80.0-100.0); MEAN PLATELET VOLUME 9.8 fL (7.4-10.4); MONOCYTES 12.3 % (2-11); NEUTROPHILS 52.8 % (40-80); PLATELET COUNT 218 10x3/uL (130-400); RBC 4.19 10x6/uL (4.20-6.10); WBC 6.4 10x3/uL (4.8-10.8)
--- NOTE | 2018-08-30 06:47 | NUR ---
I have reviewed this patient and I concur with the Shift Assessment completed by the Licensed Practical Nurse today this shift.
[2018-08-30 07:05] LABS: ALBUMIN 2.9 g/dL (3.4-5.0); ANION GAP 10.6 mmol/L (8-16); BILIRUBIN - TOTAL 0.61 mg/dL (0.2-1.3); CALCIUM 9.3 mg/dL (8.5-10.1); CARBON DIOXIDE 28.1 mmol/L (21.0-32.0); CREATININE - SERUM 1.2 mg/dL (0.6-1.3); POTASSIUM - SERUM 3.7 mmol/L (3.5-5.1)
[2018-08-30 09:01] VITALS: BP 144/85
[2018-08-30 12:50] VITALS: BP 120/62; BP 141/81
--- NOTE | 2018-08-30 12:55 | NUR ---
PT SITTING UP IN BED. SISTER AT BEDSIDE. DENIES NEEDS AT THIS TIME. CL IN REACH. SIDE RAILS UP X3 FOR PT SAFETY. BED IN LOWEST POSITION.
[2018-08-30 16:41] VITALS: BP 133/74
[2018-08-30 20:24] VITALS: BP 130/72
[2018-08-31 04:45] VITALS: BP 158/77
[2018-08-31 04:49] LABS: BASOPHILS 0.5 % (0-2); EOSINOPHILS 4.1 % (0-7); HEMATOCRIT 34.4 % (42.0-54.0); HEMOGLOBIN 11.9 g/dL (13.5-17.5); IMMATURE GRANULOCYTES 0.2 % (0-5); LYMPHOCYTES 29.5 % (15-50); MCH 29.8 pg (26.0-34.0); MCHC 34.6 g/dL (31.0-37.0); MEAN PLATELET VOLUME 9.3 fL (7.4-10.4); MONOCYTES 14.4 % (2-11); NEUTROPHILS 51.3 % (40-80); PLATELET COUNT 211 10x3/uL (130-400); RDW 12.4 % (11.5-14.5); WBC 6.6 10x3/uL (4.8-10.8)
[2018-08-31 05:19] LABS: ALBUMIN 2.6 g/dL (3.4-5.0); ALKALINE PHOSPHATASE 45 U/L (46-116); BILIRUBIN - TOTAL 0.53 mg/dL (0.2-1.3); CALC OSMOLALITY 269 mosm/kg (275-300); CARBON DIOXIDE 26.9 mmol/L (21.0-32.0); CHLORIDE - SERUM 103 mmol/L (98-107); GLUCOSE 102 mg/dL (74-106); POTASSIUM - SERUM 3.9 mmol/L (3.5-5.1); PROTEIN - SERUM 6.5 g/dL (6.4-8.2); SODIUM 136 mmol/L (136-145); UREA NITROGEN 8 mg/dL (7-18); eGFR NON AFRICAN AMERICAN 81 mL/min (90-120)
[2018-08-31 05:45] LABS: ALT (SGPT) 26 U/L (10-68)
[2018-08-31 08:50] VITALS: BP 144/85
--- NOTE | 2018-08-31 09:00 | NUR ---
ASSESSMENT PER FLOW SHEET. PT IS WITHOUT DISTRESS.FAMILY AT BEDSIDE.CALL LIGHT IN REACH.
[2018-08-31 12:53] VITALS: BP 108/69
[2018-08-31 17:43] VITALS: BP 107/58
--- NOTE | 2018-08-31 18:46 | NUR ---
REMAINS WITHOUT NEEDS.CONT PLAN OF CARE
[2018-08-31 21:00] VITALS: BP 115/68
[2018-09-01 05:06] VITALS: BP 124/74
[2018-09-01 06:04] LABS: ALBUMIN 2.6 g/dL (3.4-5.0); ALKALINE PHOSPHATASE 43 U/L (46-116); ALT (SGPT) 23 U/L (10-68); BILIRUBIN - TOTAL 0.41 mg/dL (0.2-1.3); CALC OSMOLALITY 272 mosm/kg (275-300); CALCIUM 9.1 mg/dL (8.5-10.1); CARBON DIOXIDE 27.6 mmol/L (21.0-32.0); CHLORIDE - SERUM 104 mmol/L (98-107); GLUCOSE 101 mg/dL (74-106); POTASSIUM - SERUM 3.9 mmol/L (3.5-5.1); PROTEIN - SERUM 6.6 g/dL (6.4-8.2); SODIUM 137 mmol/L (136-145); UREA NITROGEN 10 mg/dL (7-18); eGFR NON AFRICAN AMERICAN 81 mL/min (90-120)
[2018-09-01 06:15] LABS: BASOPHILS 0.5 % (0-2); EOSINOPHILS 5.1 % (0-7); HEMATOCRIT 35.1 % (42.0-54.0); HEMOGLOBIN 12.1 g/dL (13.5-17.5); IMMATURE GRANULOCYTES 0.2 % (0-5); LYMPHOCYTES 33.1 % (15-50); MCH 29.7 pg (26.0-34.0); MCHC 34.5 g/dL (31.0-37.0); MCV 86.2 fL (80.0-100.0); MEAN PLATELET VOLUME 9.4 fL (7.4-10.4); MONOCYTES 10.4 % (2-11); NEUTROPHILS 50.7 % (40-80); PLATELET COUNT 240 10x3/uL (130-400); RBC 4.07 10x6/uL (4.20-6.10); RDW 12.5 % (11.5-14.5); WBC 6.1 10x3/uL (4.8-10.8)
--- NOTE | 2018-09-01 07:48 | NUR ---
AAOX4. RESTING IN BED ON CPM. DENIES ANY NEEDS. NO S/S OF ACUTE DISTRESS. CL IN PLACE.
[2018-09-01 08:30] VITALS: BP 135/74
[2018-09-01 12:55] VITALS: BP 154/64
[2018-09-01 16:38] VITALS: BP 129/63
--- NOTE | 2018-09-01 19:00 | NUR ---
REPORT RECEIVED AND CARE OF PT ASSUMED. PT LYING IN HIGH HENDERSON'S POSITION TALKING ON THE PHONE. RIGHT PICC LINE PATENT WITH LR INFUSING AT KVO. DRESSING ON LEFT KNEE CLEAN AND DRY. PULSES ON LLE PALPATED. CPM IN USE ON LEFT LEG AT THIS TIME. WILL MONITOR FOR NEEDS.
[2018-09-01 20:00] VITALS: BP 117/70
--- NOTE | 2018-09-01 21:00 | NUR ---
CPM REMOVED FROM LEFT LEG...IN USE FOR 4 HOURS.
--- NOTE | 2018-09-01 21:15 | NUR ---
HS MEDICATIONS GIVEN TO INCLUDE NORCO PER PRN ORDER, PER REQUEST. WILL CONTINUE TO MONITOR FOR NEEDS.
[2018-09-02] VITALS: BP 123/76
[2018-09-02 04:00] VITALS: BP 123/75
[2018-09-02 04:47] LABS: BASOPHILS 0.5 % (0-2); EOSINOPHILS 5.6 % (0-7); HEMATOCRIT 34.1 % (42.0-54.0); HEMOGLOBIN 11.8 g/dL (13.5-17.5); IMMATURE GRANULOCYTES 0.3 % (0-5); LYMPHOCYTES 32.9 % (15-50); MCH 29.7 pg (26.0-34.0); MCHC 34.6 g/dL (31.0-37.0); MCV 85.9 fL (80.0-100.0); MEAN PLATELET VOLUME 9.2 fL (7.4-10.4); MONOCYTES 13.7 % (2-11); PLATELET COUNT 249 10x3/uL (130-400); RBC 3.97 10x6/uL (4.20-6.10); RDW 12.4 % (11.5-14.5); WBC 6.1 10x3/uL (4.8-10.8)
[2018-09-02 04:59] LABS: ALBUMIN 2.6 g/dL (3.4-5.0); ALKALINE PHOSPHATASE 42 U/L (46-116); ALT (SGPT) 23 U/L (10-68); BILIRUBIN - TOTAL 0.37 mg/dL (0.2-1.3); CALC OSMOLALITY 277 mosm/kg (275-300); CALCIUM 8.9 mg/dL (8.5-10.1); CARBON DIOXIDE 25.8 mmol/L (21.0-32.0); CHLORIDE - SERUM 104 mmol/L (98-107); GLUCOSE 102 mg/dL (74-106); POTASSIUM - SERUM 3.9 mmol/L (3.5-5.1); PROTEIN - SERUM 6.5 g/dL (6.4-8.2); SODIUM 139 mmol/L (136-145); UREA NITROGEN 12 mg/dL (7-18); eGFR NON AFRICAN AMERICAN 81 mL/min (90-120)
[2018-09-02 08:38] VITALS: BP 124/75
[2018-09-02] MEDS ORDERED: Vancomycin 1.25 GM/N IV (10:58)
[2018-09-02 13:00] VITALS: BP 146/69
--- NOTE | 2018-09-04 14:30 | MORECARE ---
CASE MANAGEMENT DISCHARGE SUMMARY PATIENT: HEIDI HUERTA UNIT: [id number] ADM DATE: 08/27/18 AGE: 63 : 59 SEX: M ROOM/BED: D.2215 AUTHOR: PALMER RODRÍGUEZ PHYSICIAN: REFERRING PHYSICIAN: ZURI SHIPMAN MD DATE OF SERVICE: 09/04/18 Discharge Plan Patient Name: HEIDI HUERTA Facility: [facility]:[place] : 1955 Planned Disposition: Home with Home Health and Infusion Serv Anticipated Discharge Date: 09/02/18 Discharge Date: 09/02/2018 Expected LOS: 6 Initial Reviewer: [email or web address] Initial Review Date: 08/27/2018 Generated: 09/04/18 3:29 pm Comments DCP- Discharge Planning Updated by [email or web address]: Theodora Govea on 09/01/18 2:[address] CM met with patient and his spouse, Milli at bedside regarding dc plans/needs. Patient was independent with ADL's JOINT MACHINE OPERATOR, with 's assistance. PCP: Dr. Rebolledo. Pharmacy: [facility] in [place] or [facility]. DME: cathleen novak, shower chair. Emergency contact: Milli Huerta () [phone]. Patient states he plans to return home and feels it will be a safe environment. Patient states he is going home on IV ABX and has a PICC line Right arm. Additional services needed at home: HHS, Infusion pending MD order, if needed. Patient states he will go home with IV antibiotics. Patient denies being hospitalized within past 30 days. Transportation at time of dc will be patient's , Milli. Voices no needs at this time. CM will follow and assist PRN. Theodora Govea RN, CM Patient Name: HEIDI HUERTA Page 91317 at 1430 All edits/amendments must be made on the electronic document DICTATION DATE: 09/04/18 1429 DISINTEGRATOR FEEDER: ANNA 09/04/18 1429 RPT#: [id number] DC DATE:07/05/19 STATUS: DIS IN [facility] [address] [facility] [place] [address] END OF REPORT
--- NOTE | 2018-09-04 14:50 | MORECARE ---
CASE MANAGEMENT DISCHARGE SUMMARY PATIENT: HEIDI HUERTA UNIT: [id number] ADM DATE: 08/27/18 AGE: 63 : 59 SEX: M ROOM/BED: D.2215 AUTHOR: MARCOS,DOC PHYSICIAN: REFERRING PHYSICIAN: ZURI SHIPMAN MD DATE OF SERVICE: 09/04/18 Discharge Plan Patient Name: HEIDI HUERTA Facility: [facility]:[place] : 1955 Planned Disposition: Home with Home Health and Infusion Serv Anticipated Discharge Date: 09/02/18 Discharge Date: 09/02/2018 Expected LOS: 6 Initial Reviewer: [email or web address] Initial Review Date: 08/27/2018 Generated: 09/04/18 3:50 pm Comments DCP- Discharge Planning Updated by [email or web address]: Mitra Troy on 09/04/18 1:[address] LATE ENTRY 1100 CM RECEIVED MD ORDERS FOR DISCHARGE TO HOME W/ HOME HEALTH AND IVAB INFUSION. PATIENT TO RECEIVE VANCOMYCIN 1.5 MGM Q8H X6 WEEKS VIA PICC. LABS TWICE WEEKLY. WOUND CARE, DRESSING CHANGES AND ACTIVITY PER ORTHO ORDERS. CM WENT TO SPEAK WITH THE PATIENT. HIS SISTER WAS AT THE BEDSIDE. HE GAVE PERMISSION FOR HER TO STAY DURING DISCHARGE PLANNING DISCUSSION. HE HAD NO PREFERRED PROVIDER BUT WANTS AN IN-NETWORK PROVIDER. DCP- Discharge Planning Updated by [email or web address]: Theodoraoyko Govea on 09/01/18 2:[address] CM met with patient and his spouse, Milli at bedside regarding dc plans/needs. Patient was independent with ADL's FINE DINING SERVER, with 's assistance. PCP: Dr. Rebolledo. Pharmacy: [facility] in [place] or [facility]. DME: cathleen novak, shower chair. Emergency contact: Milli Huerta () [phone]. Patient states he plans to return home and feels it will be a safe environment. Patient states he is going home on IV ABX and has a PICC line Right arm. Additional services needed at home: HHS, Infusion pending MD order, if needed. Patient states he will go home with IV antibiotics. Patient denies being hospitalized within past 30 days. Transportation at time of dc will be patient's , Milli. Voices no needs at this time. CM will follow and assist PRN. Theodora Govea RN CM Last DP export: 09/04/18 1:29 pm Patient Name: HEIDI HUERTA Page 56515 at 1450 All edits/amendments must be made on the electronic document DICTATION DATE: 09/04/181448 HOME HEALTH OUTREACH COORDINATOR: ANNA 09/04/181448 RPT#: [id number] DC DATE:09/02/18 STATUS: DIS IN [facility] [address] [place] [address] END OF REPORT
--- NOTE | 2018-09-04 14:57 | MORECARE ---
CASE MANAGEMENT DISCHARGE SUMMARY PATIENT: HEIDI HUERTA UNIT: [id number] ADM DATE: 08/27/18 AGE: 63 : 59 SEX: M ROOM/BED: D.2215 AUTHOR: MARCOS,DOC PHYSICIAN: REFERRING PHYSICIAN: ZURI SHIPMAN MD DATE OF SERVICE: 09/04/18 Discharge Plan Patient Name: HEIDI HUERTA Facility: [facility]:[place] : 1955 Planned Disposition: Home with Home Health and Infusion Serv Anticipated Discharge Date: 09/02/18 Discharge Date: 09/02/2018 Expected LOS: 6 Initial Reviewer: [email or web address] Initial Review Date: 08/27/2018 Generated: 09/04/18 3:57 pm Comments DCP- Discharge Planning Updated by [email or web address]: Mitra Troy on 09/04/18 1:[address] LATE ENTRY 1100 CM RECEIVED MD ORDERS FOR DISCHARGE TO HOME W/ HOME HEALTH AND IVAB INFUSION. PATIENT TO RECEIVE VANCOMYCIN 1.5 MGM Q8H X6 WEEKS VIA PICC. LABS TWICE WEEKLY. WOUND CARE, DRESSING CHANGES AND ACTIVITY PER ORTHO ORDERS. CM WENT TO SPEAK WITH THE PATIENT. HIS SISTER WAS AT THE BEDSIDE. HE GAVE PERMISSION FOR HER TO STAY DURING DISCHARGE PLANNING DISCUSSION. HE HAD NO PREFERRED PROVIDER BUT WANTS AN IN-NETWORK PROVIDER. CM CALLED RIKKI CHRISTIAN, [facility] , TANK TRUCK LOADER. SHE CALLED BACK AND GAVE THE INNST. [facility] PROVIDERS FOR INFUSION AND NURSING. DISCUSSED PROVIDERS WITH RIKKI . [facility] SELECTED FOR IVAB THERAPY AND [facility]. CM SPOKE WITH THE PATIENT'S AT [phone] PER HIS REQUEST. TC TO [facility] FROM [facility]. FAXED REFERRAL. TC TO [facility]. SPOKE W/ MIGUEL. FAXED REFERRAL X2. TC TO [facility] TO CONFIRM CPM HAS BEEN ORDERED. THEY HAVE THE ORDER AND WILL DELIVER. CM CONFIRMED DISCHARGE IS FOR TODAY. DCP- Discharge Planning Updated by [email or web address]: Theodora Govea on 09/01/18 2:[address] CM met with patient and his spouse, Milli at bedside regarding dc plans/needs. Patient was independent with ADL's LEGAL RECORDS CLERK, with 's assistance. PCP: Dr. Rebolledo. Pharmacy: [facility] [place] or [facility]. DME: cathleen novak, shower chair. Emergency contact: Milli Huerta () [phone]. Patient states he plans to return home and feels it will be a safe environment. Patient states he is going home on IV ABX and has a PICC line Right arm. Additional services needed at home: HHS, Infusion pending MD order, if needed. Patient states he will go home with IV antibiotics. Patient denies being hospitalized within past 30 days. Transportation at time of dc will be patient's , Milli. Voices no needs at this time. CM will follow and assist PRN. Theodora Govea RN, CM Last DP export: 09/04/18 1:50 pm Patient Name: HEIDI HUERTA Page 38451 at 5405 All edits/amendments must be made on the electronic document DICTATION DATE: 09/04/181456 STEREO EQUIPMENT REPAIRER: ANNA 09/04/18 1457 RPT#: [id number] DC DATE:09/02/18 STATUS: DIS IN [place] [id number] [place] [address] END OF REPORT
--- NOTE | 2018-09-04 15:05 | MORECARE ---
CASE MANAGEMENT DISCHARGE SUMMARY PATIENT: HEIDI HUERTA UNIT: [id number] ADM DATE: 08/27/18 AGE: 63 : 59 SEX: M ROOM/BED: D.2215 AUTHOR: MARCOS,DOC PHYSICIAN: REFERRING PHYSICIAN: ZURI SHIPMAN MD DATE OF SERVICE: 09/04/18 Discharge Plan Patient Name: HEIDI HUERTA Facility: [facility]:[place] : 1955 Planned Disposition: Home with Home Health and Infusion Serv Anticipated Discharge Date: 09/02/18 Discharge Date: 09/02/2018 Expected LOS: 6 Initial Reviewer: [email or web address] Initial Review Date: 08/27/2018 Generated: 09/04/18 4:05 pm Comments DCP- Discharge Planning Updated by [email or web address]: Mitra Troy on 09/04/18 2:[address] LATE ENTRY 09/02/18 1100 CM RECEIVED MD ORDERS FOR DISCHARGE TO HOME W/ HOME HEALTH AND IVAB INFUSION. PATIENT TO RECEIVE VANCOMYCIN 1.5 MGM Q8H X6 WEEKS VIA PICC. LABS TWICE WEEKLY. WOUND CARE, DRESSING CHANGES AND ACTIVITY PER ORTHO ORDERS. CM WENT TO SPEAK WITH THE PATIENT. HIS SISTER WAS AT THE BEDSIDE. HE GAVE PERMISSION FOR HER TO STAY DURING DISCHARGE PLANNING DISCUSSION. HE HAD NO PREFERRED PROVIDER BUT WANTS AN IN-NETWORK PROVIDER. CM CALLED RIKKI CHRISTIAN, [facility] , IT SECURITY CONSULTANT. SHE CALLED BACK AND GAVE THE [facility] PROVIDERS FOR INFUSION AND NURSING. DISCUSSED PROVIDERS WITH RIKKI . [facility] SELECTED FOR IVAB THERAPY AND [facility]. CM SPOKE WITH THE PATIENT'S AT [phone] PER HIS REQUEST. TC TO [facility] FROM [facility]. FAXED REFERRAL. TC TO [facility]. SPOKE W/ MIGUEL. TC TO [facility] TO CONFIRM CPM HAS BEEN ORDERED. THEY HAVE THE ORDER AND WILL DELIVER. CM CONFIRMED DISCHARGE IS FOR TODAY. 1330 ORTHO PARTNER MARKETING INTERN, HUMBLE HERNANDEZ, VISITED AND PROVIDED ORTHO ORDERS. FAXED HOME HEALTH ORDERS TO [facility] X2. [address] [place] TO THE HOSPITAL TO VISIT WITH THE PATIENT. SHE HAD HIS SUPPLIES. TO THE BEDSIDE. PATIENT WAS DISCHARGED BEFORE CM COULD REVISIT TO REVIEW ALL PROVIDERS AND ASK IF HE OR HIS HAD ANY QUESTIONS. ALL REFERRALS HAD BEEN COMPLETED. DCP- Discharge Planning Updated by [email or web address]: Theodora Govea on 09/01/18 2:[address] CM met with patient and his spouse, Milli at bedside regarding dc plans/needs. Patient was independent with ADL's INSTALLATION AND SERVICE TECHNICIAN, with 's assistance. PCP: Dr. Rebolledo. Pharmacy: [facility] [place] or [facility]. DME: cathleen novak, shower chair. Emergency contact: Milli Huerta () [phone]. Patient states he plans to return home and feels it will be a safe environment. Patient states he is going home on IV ABX and has a PICC line Right arm. Additional services needed at home: HHS, Infusion pending MD order, if needed. Patient states he will go home with IV antibiotics. Patient denies being hospitalized within past 30 days. Transportation at time of dc will be patient's , Milli. Voices no needs at this time. CM will follow and assist PRN. Theodora Govea RN CM Last DP export: 09/04/18 1:57 pm Patient Name: HEIDI HUERTA Page 58225 at 1505 All edits/amendments must be made on the electronic document DICTATION DATE: 09/04/18 1505 ASSET ANALYST: ANNA 09/04/18 1505 RPT#: [id number] DC DATE:09/02/18 STATUS: DIS IN [place] [id number] [place] [address] END OF REPORT
--- NOTE | 2018-09-04 15:19 | MORECARE ---
CASE MANAGEMENT DISCHARGE SUMMARY PATIENT: HEIDI HUERTA UNIT: [id number] ADM DATE: 08/27/18 AGE: 63 : 59 SEX: M ROOM/BED: D.2215 AUTHOR: MARCOS,DOC PHYSICIAN: REFERRING PHYSICIAN: ZURI SHIPMAN MD DATE OF SERVICE: 09/04/18 Discharge Plan Patient Name: HEIDI HUERTA Facility: [facility]:[place] : 1955 Planned Disposition: Home with Home Health and Infusion Serv Anticipated Discharge Date: 09/02/18 Discharge Date: 09/02/2018 Expected LOS: 6 Initial Reviewer: [email or web address] Initial Review Date: 08/27/2018 Generated: 09/04/18 4:18 pm Comments DCP- Discharge Planning Updated by [email or web address]: Mitra Troy on 09/04/18 2:[address] TC TO THE PATIENT THIS PM. SPOKE TO HIS FIRST AND THEN SPOKE WITH THE PATIENT. HE STATES ALL IS GOING WELL. HE HAD NO QUESTIONS OR CONCERNS. THE [employer] [facility] NURSE VISITED THIS AM. DCP- Discharge Planning Updated by [email or web address]: Mitra Troy on 09/04/18 2:[address] LATE ENTRY 09/02/18 1100 CM RECEIVED MD ORDERS FOR DISCHARGE TO HOME W/ HOME HEALTH AND IVAB INFUSION. PATIENT TO RECEIVE VANCOMYCIN 1.5 MGM Q8H X6 WEEKS VIA PICC. LABS TWICE WEEKLY. WOUND CARE, DRESSING CHANGES AND ACTIVITY PER ORTHO ORDERS. CM WENT TO SPEAK WITH THE PATIENT. HIS SISTER WAS AT THE BEDSIDE. HE GAVE PERMISSION FOR HER TO STAY DURING DISCHARGE PLANNING DISCUSSION. HE HAD NO PREFERRED PROVIDER BUT WANTS AN IN-NETWORK PROVIDER. CM CALLED RIKKI CHRISTIAN, THE [facility] , TOOL DESIGNER. SHE CALLED BACK AND GAVE THE [facility] PROVIDERS FOR INFUSION AND NURSING. DISCUSSED PROVIDERS WITH RIKKI . [facility] INFUSION SELECTED FOR IVAB THERAPY AND [employer] [facility] FOR HOME HEALTH. CM SPOKE WITH THE PATIENT'S AT [phone] PER HIS REQUEST. TC TO [facility] FROM [facility]. FAXED REFERRAL. TC TO [employer] [facility]. SPOKE W/ MIGUEL. TC TO [facility] TO CONFIRM CPM HAS BEEN ORDERED. THEY HAVE THE ORDER AND WILL DELIVER. CM CONFIRMED DISCHARGE IS FOR TODAY. 1330 ORTHO EDITOR PRODUCER, HUMBLE HERNANDEZ, VISITED AND PROVIDED ORTHO ORDERS. FAXED HOME HEALTH ORDERS TO [facility]. [address] [place] TO THE HOSPITAL TO VISIT WITH THE PATIENT. SHE HAD HIS SUPPLIES. TO THE BEDSIDE. PATIENT WAS DISCHARGED BEFORE CM COULD REVISIT TO REVIEW ALL PROVIDERS AND ASK IF HE OR HIS HAD ANY QUESTIONS. ALL REFERRALS HAD BEEN COMPLETED. DCP- Discharge Planning Updated by [email or web address]: Theodora Govea on 09/01/18 2:[address] CM met with patient and his spouse, Milli at bedside regarding dc plans/needs. Patient was independent with [employer], with 's assistance. PCP: Dr. Rebolledo. Pharmacy: [facility] in [place] or [facility]. DME: cathleen novak, shower chair. Emergency contact: Milli Huerta () [phone]. Patient states he plans to return home and feels it will be a safe environment. Patient states he is going home on IV ABX and has a PICC line Right arm. Additional services needed at home: HHS, Infusion pending MD order, if needed. Patient states he will go home with IV antibiotics. Patient denies being hospitalized within past 30 days. Transportation at time of dc will be patient's , Milli. [facility] no needs at this time. CM will follow and assist PRN. Theodora Govea RN, CM Last DP export: 09/04/18 2:05 pm Patient Name: HEIDI HUERTA Page [id number] at 1519 All edits/amendments must be made on the electronic document DICTATION DATE: 09/04/188 MEDICAL LABORATORY TECHNICAL OFFICER: ANNA 09/04/18 1518 RPT#: [id number] DC DATE:09/02/18 STATUS: DIS IN [facility] [address] [place] [address] END OF REPORT
== END 2018-09-02 18:18 | disposition home health service (06) | DRG 486 ==
LOC: D.ER 11:39 → D.MS 13:35
PROVIDERS: Anesthesiology; Family Medicine; ADMIT Orthopaedic Surgery; ATTEND Orthopaedic Surgery
PROC: 0S9D3ZX Drainage of Left Knee Joint, Percutaneous Approach, Diagnostic (ICD-10-PCS; principal; 2018-08-27)
PROC: 0SBD0ZZ Excision of Left Knee Joint, Open Approach (ICD-10-PCS; 2018-08-28)
PROC: 0SPD09Z Removal of Liner from Left Knee Joint, Open Approach (ICD-10-PCS; 2018-08-28)
PROC: 0SUW09Z Supplement Left Knee Joint, Tibial Surface with Liner, Open Approach (ICD-10-PCS; 2018-08-28)
PROC: 05HY33Z Insertion of Infusion Device into Upper Vein, Percutaneous Approach (ICD-10-PCS; 2018-08-29)
DX: T84.54XA Infection and inflammatory reaction due to internal left knee prosthesis, initial encounter (principal); L03.116 Cellulitis of left lower limb; T84.033A Mechanical loosening of internal left knee prosthetic joint, initial encounter; K21.9 Gastro-esophageal reflux disease without esophagitis; E16.2 Hypoglycemia, unspecified; M19.90 Unspecified osteoarthritis, unspecified site; F41.9 Anxiety disorder, unspecified

== ENCOUNTER → 2018-09-05 17:47 | Outpatient (CLI) | payer BC ==
[2018-08-27 15:17] VITALS: BMI 28.1
[~2018-09-05 17:47] MED LIST changes: +Vancomycin 1.25 GM/N IV
[2018-09-05 18:42] LABS: BASOPHILS 0.8 % (0-2); EOSINOPHILS 5.3 % (0-7); HEMATOCRIT 33.6 % (42.0-54.0); HEMOGLOBIN 11.4 g/dL (13.5-17.5); IMMATURE GRANULOCYTES 0.2 % (0-5); LYMPHOCYTES 38.4 % (15-50); MCHC 33.9 g/dL (31.0-37.0); MCV 88.4 fL (80.0-100.0); MEAN PLATELET VOLUME 9.6 fL (7.4-10.4); MONOCYTES 8.5 % (2-11); NEUTROPHILS 46.8 % (40-80); RDW 12.5 % (11.5-14.5); WBC 5.1 10x3/uL (4.8-10.8)
[2018-09-05 18:43] LABS: PLATELET COUNT 356 10x3/uL (130-400)
[2018-09-05 19:11] LABS: C-REACTIVE PROTEIN 2.6 mg/dL (0.0-0.9); VANCOMYCIN - TROUGH 24.2 ug/mL (10.0-20.0)
[2018-09-05 19:50] LABS: ERYTHROCYTE SEDIMENTATION RATE 60 mm/hr (0-20)
== END | disposition home or self-care (01) ==
LOC: D.LABREF 17:47
PROVIDERS: ATTEND Orthopaedic Surgery
DX: K21.9 Gastro-esophageal reflux disease without esophagitis (principal); M19.90 Unspecified osteoarthritis, unspecified site

== ENCOUNTER → 2018-09-08 16:23 | Outpatient (CLI) | payer BC ==
[2018-08-27 15:17] VITALS: BMI 28.1
[2018-09-08 16:51] LABS: BASOPHILS 0.7 % (0-2); EOSINOPHILS 5.2 % (0-7); HEMATOCRIT 36.3 % (42.0-54.0); HEMOGLOBIN 12.4 g/dL (13.5-17.5); IMMATURE GRANULOCYTES 0.2 % (0-5); LYMPHOCYTES 34.3 % (15-50); MCHC 34.2 g/dL (31.0-37.0); MCV 87.7 fL (80.0-100.0); MEAN PLATELET VOLUME 9.9 fL (7.4-10.4); MONOCYTES 6.9 % (2-11); NEUTROPHILS 52.7 % (40-80); PLATELET COUNT 322 10x3/uL (130-400); RBC 4.14 10x6/uL (4.20-6.10); RDW 12.4 % (11.5-14.5); WBC 5.4 10x3/uL (4.8-10.8)
[2018-09-08 17:01] LABS: C-REACTIVE PROTEIN 0.7 mg/dL (0.0-0.9); VANCOMYCIN - TROUGH 21.1 ug/mL (10.0-20.0)
[2018-09-08 17:54] LABS: ERYTHROCYTE SEDIMENTATION RATE 35 mm/hr (0-20)
== END | disposition home or self-care (01) ==
LOC: D.LABREF 16:23
PROVIDERS: ATTEND Internal Medicine Nephrology
DX: Z51.81 Encounter for therapeutic drug level monitoring (principal); Z79.2 Long term (current) use of antibiotics; T84.54XA Infection and inflammatory reaction due to internal left knee prosthesis, initial encounter; L03.114 Cellulitis of left upper limb; T84.033A Mechanical loosening of internal left knee prosthetic joint, initial encounter

== ENCOUNTER → 2018-09-12 15:46 | Outpatient (CLI) | payer BC ==
[2018-08-27 15:17] VITALS: BMI 28.1
[2018-09-12 16:09] LABS: BASOPHILS 0.9 % (0-2); EOSINOPHILS 5.2 % (0-7); HEMATOCRIT 37.9 % (42.0-54.0); HEMOGLOBIN 13.1 g/dL (13.5-17.5); IMMATURE GRANULOCYTES 0.2 % (0-5); LYMPHOCYTES 35.9 % (15-50); MCH 29.8 pg (26.0-34.0); MCHC 34.6 g/dL (31.0-37.0); MCV 86.3 fL (80.0-100.0); MONOCYTES 7.9 % (2-11); NEUTROPHILS 49.9 % (40-80); PLATELET COUNT 378 10x3/uL (130-400); RBC 4.39 10x6/uL (4.20-6.10); RDW 12.5 % (11.5-14.5); WBC 5.4 10x3/uL (4.8-10.8)
[2018-09-12 16:39] LABS: C-REACTIVE PROTEIN 0.3 mg/dL (0.0-0.9); CREATININE - SERUM 1.1 mg/dL (0.6-1.3)
[2018-09-12 17:22] LABS: ERYTHROCYTE SEDIMENTATION RATE 20 mm/hr (0-20)
== END | disposition home or self-care (01) ==
LOC: D.LABREF 15:46
PROVIDERS: ATTEND Internal Medicine Nephrology
DX: T84.54XA Infection and inflammatory reaction due to internal left knee prosthesis, initial encounter (principal); L03.114 Cellulitis of left upper limb

== ENCOUNTER → 2018-09-15 09:15 | Outpatient (CLI) | payer BC ==
[2018-08-27 15:17] VITALS: BMI 28.1
[2018-09-15 10:15] LABS: BASOPHILS 0.9 % (0-2); EOSINOPHILS 5.3 % (0-7); HEMATOCRIT 37.3 % (42.0-54.0); HEMOGLOBIN 12.8 g/dL (13.5-17.5); MCH 29.7 pg (26.0-34.0); MCHC 34.3 g/dL (31.0-37.0); MCV 86.5 fL (80.0-100.0); MEAN PLATELET VOLUME 9.9 fL (7.4-10.4); MONOCYTES 7.7 % (2-11); NEUTROPHILS 53.1 % (40-80); PLATELET COUNT 353 10x3/uL (130-400); RBC 4.31 10x6/uL (4.20-6.10); RDW 12.5 % (11.5-14.5); WBC 5.7 10x3/uL (4.8-10.8)
[2018-09-15 10:23] LABS: C-REACTIVE PROTEIN 0.4 mg/dL (0.0-0.9); VANCOMYCIN - TROUGH 17.1 ug/mL (10.0-20.0)
[2018-09-15 11:49] LABS: ERYTHROCYTE SEDIMENTATION RATE 26 mm/hr (0-20)
== END | disposition home or self-care (01) ==
LOC: D.LABREF 09:15
PROVIDERS: ATTEND Internal Medicine Nephrology
DX: T84.54XA Infection and inflammatory reaction due to internal left knee prosthesis, initial encounter (principal); L03.114 Cellulitis of left upper limb

== ENCOUNTER → 2018-09-19 11:40 | Outpatient (CLI) | payer BC ==
[2018-08-27 15:17] VITALS: BMI 28.1
[2018-09-19 12:04] LABS: BASOPHILS 1.5 % (0-2); EOSINOPHILS 8.2 % (0-7); HEMATOCRIT 36.2 % (42.0-54.0); HEMOGLOBIN 12.5 g/dL (13.5-17.5); IMMATURE GRANULOCYTES 0.2 % (0-5); LYMPHOCYTES 31.7 % (15-50); MCH 29.9 pg (26.0-34.0); MCHC 34.5 g/dL (31.0-37.0); MCV 86.6 fL (80.0-100.0); MEAN PLATELET VOLUME 9.9 fL (7.4-10.4); MONOCYTES 7.3 % (2-11); NEUTROPHILS 51.1 % (40-80); RBC 4.18 10x6/uL (4.20-6.10); RDW 12.5 % (11.5-14.5); WBC 4.1 10x3/uL (4.8-10.8)
[2018-09-19 12:15] LABS: PLATELET COUNT 273 10x3/uL (130-400)
[2018-09-19 12:24] LABS: C-REACTIVE PROTEIN 0.6 mg/dL (0.0-0.9); CREATININE - SERUM 1.1 mg/dL (0.6-1.3); VANCOMYCIN - TROUGH 15.4 ug/mL (10.0-20.0)
[2018-09-19 14:04] LABS: ERYTHROCYTE SEDIMENTATION RATE 18 mm/hr (0-20)
== END | disposition home or self-care (01) ==
LOC: D.LABREF 11:40
PROVIDERS: ATTEND Internal Medicine Nephrology
DX: T84.54XA Infection and inflammatory reaction due to internal left knee prosthesis, initial encounter (principal); T84.033A Mechanical loosening of internal left knee prosthetic joint, initial encounter; L03.114 Cellulitis of left upper limb; Z51.81 Encounter for therapeutic drug level monitoring; Z79.2 Long term (current) use of antibiotics

== ENCOUNTER 2018-09-20 15:43 | Emergency (ER) | payer BC ==
[~2018-09-20] VITALS: Ht 172.7 cm; Wt 81.6 kg
[2018-09-20 15:54] VITALS: BP 149/73; Ht 172.7 cm; Wt 81.6 kg
== END 2018-09-20 19:10 | disposition home or self-care (01) ==
LOC: D.ER 15:43
DX: T82.898A Other specified complication of vascular prosthetic devices, implants and grafts, initial encounter (principal)

== ENCOUNTER → 2018-09-22 11:19 | Outpatient (CLI) | payer BC ==
[2018-09-20 15:54] VITALS: BMI 28.1
[2018-09-22 12:58] LABS: C-REACTIVE PROTEIN 0.2 mg/dL (0.0-0.9); CREATININE - SERUM 1.1 mg/dL (0.6-1.3); VANCOMYCIN - TROUGH 14.1 ug/mL (10.0-20.0)
[2018-09-22 12:59] LABS: BASOPHILS 0.6 % (0-2); EOSINOPHILS 9.2 % (0-7); HEMATOCRIT 36.1 % (42.0-54.0); HEMOGLOBIN 12.5 g/dL (13.5-17.5); IMMATURE GRANULOCYTES 0.2 % (0-5); LYMPHOCYTES 32.7 % (15-50); MCHC 34.6 g/dL (31.0-37.0); MCV 86.6 fL (80.0-100.0); MEAN PLATELET VOLUME 10.3 fL (7.4-10.4); MONOCYTES 6.4 % (2-11); NEUTROPHILS 50.9 % (40-80); PLATELET COUNT 256 10x3/uL (130-400); RBC 4.17 10x6/uL (4.20-6.10); RDW 12.8 % (11.5-14.5); WBC 5.3 10x3/uL (4.8-10.8)
[2018-09-22 14:06] LABS: ERYTHROCYTE SEDIMENTATION RATE 21 mm/hr (0-20)
== END | disposition home or self-care (01) ==
LOC: D.LABREF 11:19
PROVIDERS: ATTEND Internal Medicine Nephrology
DX: T84.54XA Infection and inflammatory reaction due to internal left knee prosthesis, initial encounter (principal); Z96.652 Presence of left artificial knee joint

== ENCOUNTER → 2018-09-26 12:57 | Outpatient (CLI) | payer BC ==
[2018-09-20 15:54] VITALS: BMI 28.1
[2018-09-26 13:26] LABS: C-REACTIVE PROTEIN < 0.2 mg/dL (0.0-0.9); UREA NITROGEN 13 mg/dL (7-18); VANCOMYCIN - TROUGH 16.4 ug/mL (10.0-20.0)
[2018-09-26 14:39] LABS: ERYTHROCYTE SEDIMENTATION RATE 19 mm/hr (0-20)
[2018-09-26 14:40] LABS: EOSINOPHILS 9.1 % (0-7); HEMATOCRIT 36.9 % (42.0-54.0); MCHC 35.2 g/dL (31.0-37.0); MCV 85.2 fL (80.0-100.0); MEAN PLATELET VOLUME 10.4 fL (7.4-10.4); MONOCYTES 10.2 % (2-11); NEUTROPHILS 52.7 % (40-80); PLATELET COUNT 218 10x3/uL (130-400); RBC 4.33 10x6/uL (4.20-6.10); RDW 12.7 % (11.5-14.5); WBC 4.8 10x3/uL (4.8-10.8)
== END | disposition home or self-care (01) ==
LOC: D.LABREF 12:57
PROVIDERS: ATTEND Internal Medicine Nephrology
DX: T84.54XA Infection and inflammatory reaction due to internal left knee prosthesis, initial encounter (principal)

== ENCOUNTER → 2018-09-29 10:51 | Outpatient (CLI) | payer BC ==
[2018-09-20 15:54] VITALS: BMI 28.1
[2018-09-29 11:46] LABS: EOSINOPHILS 9.3 % (0-7); HEMATOCRIT 36.8 % (42.0-54.0); HEMOGLOBIN 12.7 g/dL (13.5-17.5); IMMATURE GRANULOCYTES 0.2 % (0-5); LYMPHOCYTES 29.1 % (15-50); MCH 29.8 pg (26.0-34.0); MCHC 34.5 g/dL (31.0-37.0); MCV 86.4 fL (80.0-100.0); MONOCYTES 10.7 % (2-11); NEUTROPHILS 49.7 % (40-80); PLATELET COUNT 218 10x3/uL (130-400); RBC 4.26 10x6/uL (4.20-6.10); RDW 12.8 % (11.5-14.5); WBC 4.8 10x3/uL (4.8-10.8)
[2018-09-29 11:53] LABS: C-REACTIVE PROTEIN 0.4 mg/dL (0.0-0.9); CREATININE - SERUM 1.2 mg/dL (0.6-1.3); VANCOMYCIN - TROUGH 17.2 ug/mL (10.0-20.0)
[2018-09-29 13:01] LABS: ERYTHROCYTE SEDIMENTATION RATE 19 mm/hr (0-20)
== END | disposition home or self-care (01) ==
LOC: D.LABREF 10:51
PROVIDERS: ATTEND Internal Medicine Nephrology
DX: T84.54XA Infection and inflammatory reaction due to internal left knee prosthesis, initial encounter (principal); T84.033A Mechanical loosening of internal left knee prosthetic joint, initial encounter; L03.114 Cellulitis of left upper limb

== ENCOUNTER → 2018-10-03 14:27 | Outpatient (CLI) | payer BC ==
[2018-09-20 15:54] VITALS: BMI 28.1
[2018-10-03 14:36] LABS: BASOPHILS 1.5 % (0-2); EOSINOPHILS 8.6 % (0-7); HEMATOCRIT 38.9 % (42.0-54.0); HEMOGLOBIN 13.3 g/dL (13.5-17.5); LYMPHOCYTES 36.6 % (15-50); MCH 29.7 pg (26.0-34.0); MCHC 34.2 g/dL (31.0-37.0); MCV 86.8 fL (80.0-100.0); NEUTROPHILS 47.3 % (40-80); PLATELET COUNT 224 10x3/uL (130-400); RBC 4.48 10x6/uL (4.20-6.10); WBC 4.6 10x3/uL (4.8-10.8)
[2018-10-03 15:05] LABS: UREA NITROGEN 12 mg/dL (7-18); VANCOMYCIN - TROUGH 17.1 ug/mL (10.0-20.0)
[2018-10-03 15:06] LABS: C-REACTIVE PROTEIN < 0.2 mg/dL (0.0-0.9)
[2018-10-03 16:12] LABS: ERYTHROCYTE SEDIMENTATION RATE 8 mm/hr (0-20)
== END | disposition home or self-care (01) ==
LOC: D.LABREF 14:27
PROVIDERS: ATTEND Internal Medicine Nephrology
DX: T84.54XA Infection and inflammatory reaction due to internal left knee prosthesis, initial encounter (principal); T84.033A Mechanical loosening of internal left knee prosthetic joint, initial encounter; L03.114 Cellulitis of left upper limb

== ENCOUNTER → 2018-10-06 11:03 | Outpatient (CLI) | payer BC ==
[2018-09-20 15:54] VITALS: BMI 28.1
[2018-10-06 11:37] LABS: BASOPHILS 0.8 % (0-2); EOSINOPHILS 7.5 % (0-7); HEMATOCRIT 37.1 % (42.0-54.0); HEMOGLOBIN 12.9 g/dL (13.5-17.5); LYMPHOCYTES 32.5 % (15-50); MCH 29.8 pg (26.0-34.0); MCHC 34.8 g/dL (31.0-37.0); MCV 85.7 fL (80.0-100.0); MEAN PLATELET VOLUME 9.9 fL (7.4-10.4); MONOCYTES 9.7 % (2-11); NEUTROPHILS 49.5 % (40-80); PLATELET COUNT 240 10x3/uL (130-400); RBC 4.33 10x6/uL (4.20-6.10); RDW 12.8 % (11.5-14.5); WBC 4.9 10x3/uL (4.8-10.8)
[2018-10-06 12:14] LABS: UREA NITROGEN 11 mg/dL (7-18); VANCOMYCIN - TROUGH 16.4 ug/mL (10.0-20.0)
[2018-10-06 12:15] LABS: C-REACTIVE PROTEIN < 0.2 mg/dL (0.0-0.9)
[2018-10-06 13:37] LABS: ERYTHROCYTE SEDIMENTATION RATE 10 mm/hr (0-20)
== END | disposition home or self-care (01) ==
LOC: D.LABREF 11:03
PROVIDERS: ATTEND Internal Medicine Nephrology
DX: T84.54XA Infection and inflammatory reaction due to internal left knee prosthesis, initial encounter (principal); L03.114 Cellulitis of left upper limb

== ENCOUNTER → 2018-10-10 11:53 | Outpatient (CLI) | payer BC ==
[2018-09-20 15:54] VITALS: BMI 28.1
== END | disposition home or self-care (01) ==
LOC: D.CN 11:53
PROVIDERS: ATTEND Orthopaedic Surgery
DX: T84.54XS Infection and inflammatory reaction due to internal left knee prosthesis, sequela (principal); M25.562 Pain in left knee

== ENCOUNTER → 2018-10-10 12:00 | Outpatient (CLI) | payer BC ==
[2018-09-20 15:54] VITALS: BMI 28.1
[2018-10-10 18:56] LABS: BASOPHILS 0.7 % (0-2); EOSINOPHILS 6.9 % (0-7); HEMATOCRIT 38.7 % (42.0-54.0); HEMOGLOBIN 13.3 g/dL (13.5-17.5); IMMATURE GRANULOCYTES 0.2 % (0-5); LYMPHOCYTES 38.1 % (15-50); MCH 29.8 pg (26.0-34.0); MCHC 34.4 g/dL (31.0-37.0); MCV 86.6 fL (80.0-100.0); MEAN PLATELET VOLUME 10.3 fL (7.4-10.4); MONOCYTES 5.9 % (2-11); NEUTROPHILS 48.2 % (40-80); PLATELET COUNT 259 10x3/uL (130-400); RBC 4.47 10x6/uL (4.20-6.10); WBC 5.9 10x3/uL (4.8-10.8)
[2018-10-10 19:07] LABS: ALBUMIN 3.8 g/dL (3.4-5.0); ALKALINE PHOSPHATASE 48 U/L (46-116); ALT (SGPT) 25 U/L (10-68); BILIRUBIN - TOTAL 0.35 mg/dL (0.2-1.3); C-REACTIVE PROTEIN 0.2 mg/dL (0.0-0.9); CALC OSMOLALITY 275 mosm/kg (275-300); CALCIUM 8.9 mg/dL (8.5-10.1); CARBON DIOXIDE 22.9 mmol/L (21.0-32.0); CHLORIDE - SERUM 103 mmol/L (98-107); GLUCOSE 139 mg/dL (74-106); POTASSIUM - SERUM 4.4 mmol/L (3.5-5.1); PROTEIN - SERUM 7.3 g/dL (6.4-8.2); SODIUM 137 mmol/L (136-145); UREA NITROGEN 12 mg/dL (7-18); eGFR NON AFRICAN AMERICAN 81 mL/min (90-120)
[2018-10-10 23:05] LABS: ERYTHROCYTE SEDIMENTATION RATE 4 mm/hr (0-20)
[2018-10-10 23:49] LABS: HEMOGLOBIN 12.8 g/dL (13.5-17.5); RBC 4.27 10x6/uL (4.20-6.10); WBC 6.7 10x3/uL (4.8-10.8)
[2018-10-10 23:50] LABS: HEMATOCRIT 37.1 % (42.0-54.0); LYMPHOCYTES 32.3 % (15-50); MCHC 34.5 g/dL (31.0-37.0); MCV 86.9 fL (80.0-100.0); MEAN PLATELET VOLUME 9.7 fL (7.4-10.4); NEUTROPHILS 53.6 % (40-80); PLATELET COUNT 251 10x3/uL (130-400); RDW 12.9 % (11.5-14.5)
[2018-10-10 23:58] LABS: C-REACTIVE PROTEIN < 0.2 mg/dL (0.0-0.9); UREA NITROGEN 14 mg/dL (7-18); VANCOMYCIN - TROUGH 17.3 ug/mL (10.0-20.0)
[2018-10-11 00:59] LABS: ERYTHROCYTE SEDIMENTATION RATE 11 mm/hr (0-20)
== END | disposition home or self-care (01) ==
LOC: D.LABREF 12:00
PROVIDERS: ATTEND Orthopaedic Surgery
DX: M25.562 Pain in left knee (principal)

== ENCOUNTER → 2018-11-07 10:14 | Outpatient (CLI) | payer BC ==
[2018-09-20 15:54] VITALS: BMI 28.1
[2018-11-07 10:37] LABS: BASOPHILS 0.8 % (0-2); EOSINOPHILS 6.6 % (0-7); HEMATOCRIT 39.9 % (42.0-54.0); HEMOGLOBIN 13.7 g/dL (13.5-17.5); IMMATURE GRANULOCYTES 0.2 % (0-5); LYMPHOCYTES 33.3 % (15-50); MCH 29.7 pg (26.0-34.0); MCHC 34.3 g/dL (31.0-37.0); MCV 86.4 fL (80.0-100.0); MEAN PLATELET VOLUME 9.3 fL (7.4-10.4); MONOCYTES 9.2 % (2-11); NEUTROPHILS 49.9 % (40-80); PLATELET COUNT 237 10x3/uL (130-400); RBC 4.62 10x6/uL (4.20-6.10); RDW 12.9 % (11.5-14.5)
[2018-11-07 11:08] LABS: ALBUMIN 3.6 g/dL (3.4-5.0); ALKALINE PHOSPHATASE 62 U/L (46-116); ALT (SGPT) 24 U/L (10-68); BILIRUBIN - TOTAL 0.18 mg/dL (0.2-1.3); C-REACTIVE PROTEIN 0.7 mg/dL (0.0-0.9); CALC OSMOLALITY 279 mosm/kg (275-300); CALCIUM 8.5 mg/dL (8.5-10.1); CARBON DIOXIDE 29.5 mmol/L (21.0-32.0); CHLORIDE - SERUM 104 mmol/L (98-107); GLUCOSE 132 mg/dL (74-106); POTASSIUM - SERUM 4.2 mmol/L (3.5-5.1); PROTEIN - SERUM 7.3 g/dL (6.4-8.2); SODIUM 139 mmol/L (136-145); UREA NITROGEN 13 mg/dL (7-18); eGFR NON AFRICAN AMERICAN 81 mL/min (90-120)
[2018-11-07 13:06] LABS: ERYTHROCYTE SEDIMENTATION RATE 15 mm/hr (0-20)
== END | disposition home or self-care (01) ==
LOC: D.LAB 10:14
PROVIDERS: ATTEND Orthopaedic Surgery
DX: T84.54XD Infection and inflammatory reaction due to internal left knee prosthesis, subsequent encounter (principal)

== ENCOUNTER → 2018-12-05 10:18 | Outpatient (CLI) | payer BC ==
[2018-09-20 15:54] VITALS: BMI 28.1
[2018-12-05 10:58] LABS: BASOPHILS 1.4 % (0-2); HEMATOCRIT 42.9 % (42.0-54.0); HEMOGLOBIN 14.2 g/dL (13.5-17.5); LYMPHOCYTES 39.8 % (15-50); MCH 29.5 pg (26.0-34.0); MCHC 33.1 g/dL (31.0-37.0); MCV 89.2 fL (80.0-100.0); MEAN PLATELET VOLUME 9.8 fL (7.4-10.4); MONOCYTES 8.4 % (2-11); NEUTROPHILS 43.4 % (40-80); PLATELET COUNT 263 10x3/uL (130-400); RBC 4.81 10x6/uL (4.20-6.10); RDW 12.9 % (11.5-14.5); WBC 4.3 10x3/uL (4.8-10.8)
[2018-12-05 11:05] LABS: ALBUMIN 3.5 g/dL (3.4-5.0); ALKALINE PHOSPHATASE 64 U/L (46-116); ALT (SGPT) 22 U/L (10-68); BILIRUBIN - TOTAL 0.12 mg/dL (0.2-1.3); C-REACTIVE PROTEIN 0.5 mg/dL (0.0-0.9); CALC OSMOLALITY 286 mosm/kg (275-300); CALCIUM 8.8 mg/dL (8.5-10.1); CARBON DIOXIDE 28.8 mmol/L (21.0-32.0); CHLORIDE - SERUM 105 mmol/L (98-107); GLUCOSE 125 mg/dL (74-106); POTASSIUM - SERUM 4.1 mmol/L (3.5-5.1); PROTEIN - SERUM 7.6 g/dL (6.4-8.2); SODIUM 143 mmol/L (136-145); UREA NITROGEN 16 mg/dL (7-18); eGFR NON AFRICAN AMERICAN 81 mL/min (90-120)
[2018-12-05 12:56] LABS: ERYTHROCYTE SEDIMENTATION RATE 13 mm/hr (0-20)
== END | disposition home or self-care (01) ==
LOC: D.LAB 10:18
PROVIDERS: ATTEND Orthopaedic Surgery
DX: M25.562 Pain in left knee (principal)